=== PATIENT | male | born 1940 | race Caucasian/White ===

== ENCOUNTER 2016-02-21 00:14 | Inpatient (IN) | payer MEDICARE ==
[2016-02-21 01:06] LABS: Hematocrit 42 % (42-52); Hemoglobin 13.6 g/dl (14.0-18.0); Mean Corpuscular HGB Conc 33 g/dl (31-36); Mean Corpuscular Hemoglobin 30 pg (27-31); Mean Corpuscular Volume 93 fL (80-94); Mean Platelet Volume 7 um3 (7.4-10.4); Red Cell Distribution Width 13 % (10.5-15); White Blood Count 14.2 10^3/ul (3.5-10.8)
[2016-02-21 01:17] LABS: Albumin 4.2 g/dL (3.2-5.2); BUN/Creatinine Ratio 29.2 (8-20); Calcium 9.2 mg/dL (8.6-10.3); EGFR African American 107.2 (>60); EGFR Non-African American 83.3 (>60); Globulin 2.5 g/dL (2-4); Magnesium 1.8 mg/dL (1.9-2.7); Total Bilirubin 0.5 mg/dL (0.2-1.0); Total Protein 6.7 g/dL (6.4-8.9)
[2016-02-21] MEDS ORDERED: Acetaminophen TAB* 325 MG PO ONE (01:37)
--- NOTE | 2016-02-21 02:05 | ED ---
Kevin Beach Billy, scribed for Gino Reyna MD on 02/21/16 at 0039 . Complex/Multi-Sys Presentation - HPI Summary HPI Summary: 75 year-old male coming to the ED with a complaint of generalized weakness and constant right ankle pain. He states that the pain began at dinnertime today. Pain severity 6/10. Pain is worse with touch. He has no other complaints. - History Of Current Complaint Chief Complaint: EDGeneral Time Seen by Provider: 02/21/16 00:20 Hx Obtained From: Patient Onset/Duration: Gradual Onset, Lasting Hours, Still Present Timing: Constant Severity Currently: Moderate Severity Initially: Moderate Location: Pain At: - right ankle Aggravating Factor(s): touch Associated Signs And Symptoms: Positive: Weakness - Allergies/Home Medications Allergies/Adverse Reactions: Allergies Allergy/AdvReac Type Severity Reaction Status Date / Time No Known Allergies Allergy Verified 02/21/16 06:38 Home Medications: Home Medications Carbidopa/Levodop 25/100 MG(*) [Sinemet 25/100 TAB(*)] 1 tab PO DAILY 02/21/16 [ History Confirmed 02/21/16] PMH/Surg Hx/FS Hx/Imm Hx Endocrine/Hematology History: Denies: Hx Diabetes Cardiovascular History: Reports: Hx Hypertension Denies: Other Cardiovascular Problems/Disorders - enlarged aortic route. Dr. Espinoza aware Respiratory History: Reports: Hx Asthma - A CHILD, Hx Pneumonia, Hx Seasonal Allergies History: Reports: Hx Benign Prostatic Hyperplasia Sensory History: Reports: Hx Contacts or Glasses Opthamlomology History: Reports: Hx Contacts or Glasses Neurological History: Reports: Other Neuro Impairments/Disorders - Parkinson's ( 1999) - Cancer History Cancer Type, Location and Year: prostate CA Hx Chemotherapy: Yes - Surgical History Surgery Procedure, Year, and Place: TONSILECTOMY - Immunization History Date of Tetanus Vaccine: UNK Date of Influenza Vaccine: fall 2015 Infectious Disease History: No Infectious Disease History: Reports: History Other Infectious Disease - MEASLES AND CHICKEN POX A CHILD Denies: Traveled Outside the [place] in Last 30 Days - Family History Known Family History: Positive: Cardiac Disease - Social History Alcohol Use: None Substance Use Type: Reports: None Smoking Status (MU): Never Smoked Tobacco Review of Systems Positive: Other - RLE pain Positive: Weakness All Other Systems Reviewed And Are Negative: Yes Physical Exam Triage Information Reviewed: Yes Vital Signs On Initial Exam: Initial Vitals Temp Pulse Resp BP Pulse Ox 101.1 F 114 16 169/92 97 02/21/16 00:17 02/21/16 00:17 02/21/16 00:17 02/21/16 00:17 02/21/16 00:17 Vital Signs Reviewed: Yes Appearance: Positive: No Pain Distress, Thin Skin: Positive: Warm Eyes: Positive: AURA ENT: Positive: Hearing grossly normal Neck: Positive: Supple Respiratory/Lung Sounds: Positive: Breath Sounds Present Cardiovascular: Positive: Normal Abdomen Description: Positive: Nontender, Soft Bowel Sounds: Positive: Present Neurological: Positive: Alert, Oriented to Person Place, Time - [place]ter Coma Scale Coma Scale Total: 15 Diagnostics - Vital Signs Vital Signs Temp Pulse Resp BP Pulse Ox 02/21/16 00:17 101.1 F 114 16 169/92 97 - Laboratory Lab Results: Lab Results 02/21/16 02/21/16 02/21/16 Range/Units 00:50 00:50 00:50 WBC 14.2 H (3.5-10.8) 10^3/ul RBC 4.50 (4.0-5.4) 10^6/ul Hgb 13.6 L (14.0-18.0) g/dl Hct 42 (42-52) % MCV 93 (80-94) fL MCH 30 (27-31) pg MCHC 33 (31-36) g/dl RDW 13 (10.5-15) % Plt Count 150 (150-450) 10^3/ul MPV 7 L (7.4-10.4) um3 Neut % (Auto) 88.7 H (38-83) % Lymph % (Auto) 6.1 L (25-47) % [place] % (Auto) 4.3 (1-9) % Eos % (Auto) 0.4 (0-6) % Baso % (Auto) 0.5 (0-2) % Absolute Neuts (auto) 12.6 H (1.5-7.7) 10^3/ul Absolute Lymphs (auto) 0.9 L (1.0-4.8) 10^3/ul Absolute Monos (auto) 0.6 (0-0.8) 10^3/ul Absolute Eos (auto) 0.1 (0-0.6) 10^3/ul Absolute Basos (auto) 0.1 (0-0.2) 10^3/ul Absolute Nucleated RBC 0 10^3/ul Nucleated RBC % 0 Sodium 137 (133-145) mmol/L Potassium 4.0 (3.5-5.0) mmol/L Chloride 102 (101-111) mmol/L Carbon Dioxide 29 (22-32) mmol/L Anion Gap 6 (2-11) mmol/L BUN 26 H (6-24) mg/dL Creatinine 0.89 (0.67-1.17) mg/dL Est GFR ( Amer) 107.2 (>60) Est GFR (Non-Af Amer) 83.3 (>60) BUN/Creatinine Ratio 29.2 H (8-20) Glucose 119 H (70-100) mg/dL Lactic Acid 1.8 (0.5-2.0) mmol/L Calcium 9.2 (8.6-10.3) mg/dL Magnesium 1.8 L (1.9-2.7) mg/dL Total Bilirubin 0.50 (0.2-1.0) mg/dL AST 20 (13-39) U/L ALT 7 (7-52) U/L Alkaline Phosphatase 98 (34-104) U/L Troponin I 0.00 (<0.04) ng/mL Total Protein 6.7 (6.4-8.9) g/dL Albumin 4.2 (3.2-5.2) g/dL Globulin 2.5 (2-4) g/dL Albumin/Globulin Ratio 1.7 (1-3) Result Diagrams: 02/22/16 06:40 02/22/16 06:40 Lab Statement: Any lab studies that have been ordered have been reviewed, and results considered in the medical decision making process. - Radiology CXR Xray Interpretation: No Acute Changes Radiology Interpretation Completed By: ED Physician R. Ankle X-Ray Xray Interpretation: No Acute Changes Radiology Interpretation Completed By: ED Physician - EKG 0244 EKG Interpretation: sinus tach 110 bpm, no ST changes Re-Evaluation - Re-Evaluation First Eval Comment: for social service eval Complex Multi-Symp Course/Dx - Diagnoses Provider Diagnoses: UTI (urinary tract infection), CELLULITIS - Physician Notifications Instructed by Provider To: Admit As Inpatient Discharge - Discharge Plan Condition: Stable Disposition: ADMITTED TO [facility] The documentation as recorded by the Kevin gomez Billy accurately reflects the service I personally performed and the decisions made by me, Gino Reyna MD.
[2016-02-21 03:29] LABS: Urine Bilirubin Negative (Negative); Urine Glucose Negative (Negative); Urine Nitrite Negative (Negative)
[2016-02-21] MEDS ORDERED: Carbidopa/Levodop 25/100 MG TAB(*) PO ONE ×2 (07:24→07:39)
--- NOTE | 2016-02-21 07:35 | RAD ---
INDICATION: Fever. COMPARISON: Comparison is made with a prior chest x-ray study from August 02, 2012. TECHNIQUE: AP and lateral views of the chest were obtained. FINDINGS: There is elevation of the left hemidiaphragm versus a diaphragmatic hernia which appears unchanged from the prior study. This silhouettes the left heart border and limits the study. The lungs are underinflated and grossly clear. No pleural effusion is seen. IMPRESSION: CHRONIC ELEVATION OF THE LEFT HEMIDIAPHRAGM VERSUS DIAPHRAGMATIC HERNIA, UNCHANGED.
[2016-02-21] MEDS ORDERED: Carbidopa/Levodop 25/100 MG TAB(*) ONE (07:37)
--- NOTE | 2016-02-21 07:37 | RAD ---
INDICATION: Right ankle injury. TECHNIQUE: 2 views of the right ankle were obtained. FINDINGS: There is diffuse soft tissue swelling. The bones are normal alignment. There is a faint radiolucent line extending through the tip of the medial malleolus possibly representing a nondisplaced fracture. 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 IMPRESSION: 1. DIFFUSE SOFT TISSUE SWELLING. 2. POSSIBLE NONDISPLACED FRACTURE OF THE TIP OF THE MEDIAL MALLEOLUS.
[2016-02-21] MEDS ORDERED: ceFAZolin 1 GM in Dextrose (*) 1 GM/50 ML BAG IVPB ONE (08:15)
[2016-02-21] MEDS ORDERED: NS 0.9% 1000 ML* 2,000 ML IV ONE (08:15)
[2016-02-21] MEDS ORDERED: Magnesium Hydroxide LIQ* 30 ML UDC PO PRN (08:27)
[2016-02-21] MEDS ORDERED: Temazepam CAP* 15 MG PO PRN (08:27)
[2016-02-21] MEDS ORDERED: Al Hydrox/Mg Hydrox/Simet LIQ* 30 ML UDC PO PRN (08:27)
[2016-02-21] MEDS ORDERED: NS 0.9% 1000 ML* 1,000 ML IV SCH (08:30)
[2016-02-21] MEDS ORDERED: Potassium Chlor TAB* 10 MEQ TAB.ER PO SCH (09:00)
[2016-02-21] MEDS ORDERED: Furosemide TAB* 20 MG PO SCH (09:00)
[2016-02-21] MEDS ORDERED: QUEtiapine TAB* 25 MG PO SCH (09:00)
--- NOTE | 2016-02-21 09:19 | ED ---
Progress - Progress Note Progress Note: PATIENT ADMITTED BY HOSPITALIST IN STABLE CONDITION FOR RT LEG CELLULITIS, FEVER , TACHYCARDIA, WEAKNESS. DISCUSSED WITH PATIENT/SON, BAND SPLITTER AND HOSPITALIST. Re-Evaluation - Re-Evaluation First Eval Comment: for social service eval Course/Dx - Diagnoses Provider Diagnoses: UTI (urinary tract infection)
[2016-02-21] MEDS: Carbidopa/Levodop 25/100 MG TAB(*) PO SCH ×3 (12:43→20:18)
[2016-02-21] MEDS: Pramipexole TAB* 0.5 MG PO SCH ×3 (12:45→20:18)
[2016-02-21] MEDS: Docusate CAP* 100 MG PO SCH ×2 (12:45→20:18)
[2016-02-21] MEDS: Heparin VIAL(*) 5000 UNITS/ML VIAL (FIVE THOUSAND) SUBCUT SCH ×2 (12:47→20:27)
[2016-02-21] MEDS: ceFAZolin 1 GM in Dextrose (*) 1 GM/50 ML BAG IVPB SCH ×2 (15:28→20:18)
[2016-02-21] MEDS: Acetaminophen TAB* 325 MG PO PRN (15:46)
--- NOTE | 2016-02-21 16:11 | HP ---
HISTORY AND PHYSICAL: DATE OF ADMISSION: 02/21/16 PRIMARY CARE PHYSICIAN: Dr. Sullivan. CHIEF COMPLAINT: Fever and chills. HISTORY OF PRESENT ILLNESS: Rick Anderson is a 75-year-old male with history of Parkinson's and hypertension, who presents complaining of sudden-onset fever and chills last night. The patient also noted that his right leg was red and swollen. He was diagnosed with cellulitis in the emergency department and met sepsis criteria at admission. He is going to be placed on overnight observation. PAST MEDICAL HISTORY: 1. Parkinson's disease. 2. History of prostate cancer, on Lupron injections prescribed by Dr. Cerda. 3. History of PACs and PVCs and evaluation for that by Dr. Butler in 2012. 4. History of bilateral partially thrombosed iliac artery aneurysms. 5. History of chronic leg edema. 6. Hypertension. 7. History of tonsillectomy remotely. MEDICATIONS: At home, include: 1. Sinemet 25/100 two tabs 3 times a day. 2. Vitamin C 500 mg daily. 3. Calcium carbonate 1 tablet daily. 4. Seroquel 12.5 mg daily. 5. Mirapex 1 mg 3 times a day. 6. Potassium chloride 20 mEq daily. ALLERGIES: No known drug allergies. FAMILY HISTORY: Both parents in their 90s. Both had history of heart disease. The patient's sister had thoracic aortic aneurysm and in her 60s. SOCIAL HISTORY: The patient denies tobacco, alcohol, or drug use. He is retired and lives at [facility] in an independent apartment. He ambulates with a roller walker and he still drives. His son, Haroon Anderson, is his healthcare proxy. REVIEW OF SYSTEMS: Please see history of present illness. The patient stated that he had been in his usual health up until yesterday when he developed erythema on the right leg and fever. Once again, he usually ambulates with a rolling walker, but he is able to take care of his own affairs. His Parkinson' s had been fairly controlled. He has a history of bilateral leg edema for which he used to take Lasix, but that had been "out of control" for the past year. His weight had been unchanged. He denies any recent illnesses apart from the one that occurred within past 24 hours. All the remaining 14 systems were reviewed with the patient and were otherwise negative. PHYSICAL EXAMINATION GENERAL: The patient is a very pleasant 75-year-old male, who is in no acute distress. Alert, awake, and oriented x3. VITAL SIGNS: Blood pressure of 115/62, heart rate of 104 and regular, respiratory rate 16, oxygen saturation 93% on room air, temperature max 101.1. HEENT: Head atraumatic, normocephalic. Eyes: Pupils equal, reactive to light and accommodation. Oropharynx clear. Mucosa moist. NECK: Supple. No JVD. No bruit bilaterally. RESPIRATORY: Clear to auscultation bilaterally. CARDIOVASCULAR: Regular rate and rhythm. No murmur. ABDOMEN: Soft and nontender. Bowel sounds positive in all 4 quadrants. EXTREMITIES: There is trace right ankle edema. Pulses present 2+ bilaterally. No clubbing or cyanosis. NEURO: Speech clear. Cranial nerves II through XII grossly intact. Motor strength is 5/5 bilaterally. The patient does appear to have some baseline tremor and mild rigidity. PSYCHIATRIC: Alert and oriented x3 with no evidence of anxiety or depression. SKIN: Upon evaluation of the skin, the patient has erythema of the skin surrounding the right medial malleolus and tracking all the way to throughout the patient's distal lower extremity to the level of the knee. No palpated loculated fluid collections underneath the skin. The patient has full range of motion in bilateral ankles. DIAGNOSTIC STUDIES/LAB DATA: White blood cell count of 14.2, hemoglobin of 13.6, hematocrit of 42, and platelets of 150. Sodium was 137, potassium 4.0, chloride of 102, carbon dioxide 29, BUN 26, creatinine 0.89. Liver functions were unremarkable. Urinalysis showed trace ketones. Ankle x-ray, impression: "Diffuse soft tissue swelling. Possible nondisplaced fracture of the tip of the medial malleolus." Chest x-ray, impression: "Chronic elevation of the left hemidiaphragm versus diaphragmatic hernia. Unchanged." The patient's EKG shows sinus tachycardia with a heart rate of 110 beats per minute with normal axis, no ST changes. ASSESSMENT AND PLAN: A 75-year-old male with history of Parkinson's and hypertension, who presents with right leg cellulitis. The patient is going to be placed on observation and treated with cefazolin. He does meet sepsis criteria on admission. He is going to be also placed on gentle hydration. In regards to his Parkinson's, Sinemet and pramipexole are going to be continued. For DVT prophylaxis, the patient is going to be placed on heparin subcutaneously. Due to history of ambulation with a walker and overall deconditioning, PT and OT evaluations are going to be obtained. Code status was discussed with the patient. The patient wishes to be do not resuscitate and MOLST form was signed. The patient's healthcare proxy is his son, Haroon. In regards to possibility of nondisplaced fracture of the tip of the medial malleolus, I believe the treatment is nonoperative, but I am going to curb-side orthopedic surgeon in regards to that. TIME SPENT: Approximately 65 minutes was spent on admission of this patient, more than half that time was spent [id number] with the patient during the interview and physical exam. CC: Dr. Sullivan; Dr. Butler * [id number]/[facility] #: [id number] MTDD
[2016-02-21] MEDS: QUEtiapine TAB* 25 MG PO SCH (20:19)
[2016-02-22] MEDS: Acetaminophen TAB* 325 MG PO PRN (00:12)
[2016-02-22] MEDS: ceFAZolin 1 GM in Dextrose (*) 1 GM/50 ML BAG IVPB SCH ×4 (04:25→22:05)
[2016-02-22] MEDS: Heparin VIAL(*) 5000 UNITS/ML VIAL (FIVE THOUSAND) SUBCUT SCH ×3 (05:14→23:29)
[2016-02-22 06:57] LABS: Hematocrit 37 % (42-52); Hemoglobin 12.7 g/dl (14.0-18.0); Mean Corpuscular HGB Conc 34 g/dl (31-36); Mean Corpuscular Hemoglobin 31 pg (27-31); Mean Corpuscular Volume 91 fL (80-94); Mean Platelet Volume 7 um3 (7.4-10.4); Red Blood Count 4.09 10^6/ul (4.0-5.4); Red Cell Distribution Width 14 % (10.5-15); White Blood Count 9.6 10^3/ul (3.5-10.8)
[2016-02-22 07:10] LABS: BUN/Creatinine Ratio 25.3 (8-20); Calcium 8.3 mg/dL (8.6-10.3); EGFR African American 116.2 (>60); EGFR Non-African American 90.3 (>60); Potassium 3.5 mmol/L (3.5-5.0)
[2016-02-22] MEDS: Pramipexole TAB* 0.5 MG PO SCH ×3 (08:10→14:18)
[2016-02-22] MEDS: Docusate CAP* 100 MG PO SCH ×2 (08:10→23:14)
[2016-02-22] MEDS: Carbidopa/Levodop 25/100 MG TAB(*) PO SCH ×3 (08:10→14:18)
--- NOTE | 2016-02-22 09:56 | PN ---
Subjective Date of Service: 02/22/16 Interval History: Less pain R leg. Patient states he is weaker because he did not get the same doses of carbidops/Ldopa that he gets at home. Objective Active Medications: Acetaminophen (Tylenol Tab*) 650 mg PO Q4H PRN PRN Reason: FEVER/PAIN Last Admin: 02/22/16 00:12 Dose: 650 mg Al Hydrox/Mg Hydrox/Simethicone (Maalox Plus*) 30 ml PO Q6H PRN PRN Reason: INDIGESTION Carbidopa/Levodopa (Sinemet Cr 50/200(*)) 0.5 tab.cr PO DAILY [facility] Carbidopa/Levodopa (Sinemet Cr 50/200(*)) 1 tab.cr PO 1700 [facility] Carbidopa/Levodopa (Sinemet 25/100 Tab(*)) 2 tab PO 0700,1000,1500 [facility] Docusate Sodium (Colace Cap*) 100 mg PO BID [facility] Last Admin: 02/22/16 08:10 Dose: 100 mg Heparin Sodium (Porcine) (Heparin Vial(*)) 5,000 units SUBCUT Q8HR [facility] Last Admin: 02/22/16 05:14 Dose: 5,000 units Cefazolin Sodium/Dextrose (Kefzol 1 Gm In Dextrose Duplex (*)) 1 gm in 50 mls @ 200 mls/hr IVPB Q6H [facility] Last Admin: 02/22/16 08:10 Dose: 200 mls/hr Magnesium Hydroxide (Milk Of Magnesia Liq*) 30 ml PO Q4H PRN PRN Reason: CONSTIPATION Pramipexole Dihydrochloride (Mirapex Tab*) 1 mg PO 0700,1000,1500 [facility] Quetiapine Fumarate (Seroquel Tab*) 12.5 mg PO BEDTIME [facility] Last Admin: 02/21/16 20:19 Dose: 12.5 mg Temazepam (Restoril Cap*) 15 mg PO BEDTIME PRN PRN Reason: INSOMNIA Vital Signs 02/21/16 02/21/16 02/21/16 10:00 10:59 11:00 Temperature 98.6 F 98.6 F Pulse Rate 94 94 Respiratory 28 Rate Blood Pressure 115/76 132/74 132/74 (mmHg) O2 Sat by Pulse 95 95 Oximetry 02/21/16 02/21/16 02/21/16 15:36 19:33 19:45 Temperature 102.0 F 98.4 F Pulse Rate 93 78 Respiratory 20 28 22 Rate Blood Pressure 129/73 123/66 (mmHg) O2 Sat by Pulse 93 96 Oximetry 02/21/16 02/22/16 23:45 07:32 Temperature 102.2 F 97.9 F Pulse Rate 87 73 Respiratory 16 18 Rate Blood Pressure 140/84 122/75 (mmHg) O2 Sat by Pulse 92 96 Oximetry Oxygen Devices in Use Now: None Appearance: Alert, supine in bed. In good spirits. Looks comfortable. Eyes: No Scleral Icterus Respiratory: Symmetrical Chest Expansion and Respiratory Effort, Clear to Auscultation, Clear to Percussion Cardiovascular: NL Sounds; No Murmurs; No JVD, RRR, No Edema, - Extremities: No Clubbing, Cyanosis, - - 1-2+ edema R lower leg Skin: No Nodules or Sclerosis, - - R leg somewhat redder than L leg. Both legs hyperpigmented. Neurological: Alert and Oriented x 3, NL Sensation - parkinsonian facies. Result Diagrams: 02/22/16 06:40 02/22/16 06:40 Additional Lab and Data: Lab Results 02/21/16 02/21/16 02/21/16 Range/Units 00:50 00:50 00:50 WBC 14.2 H (3.5-10.8) 10^3/ul RBC 4.50 (4.0-5.4) 10^6/ul Hgb 13.6 L (14.0-18.0) g/dl Hct 42 (42-52) % MCV 93 (80-94) fL MCH 30 (27-31) pg MCHC 33 (31-36) g/dl RDW 13 (10.5-15) % Plt Count 150 (150-450) 10^3/ul MPV 7 L (7.4-10.4) um3 Neut % (Auto) 88.7 H (38-83) % Lymph % (Auto) 6.1 L (25-47) % [place] % (Auto) 4.3 (1-9) % Eos % (Auto) 0.4 (0-6) % Baso % (Auto) 0.5 (0-2) % Absolute Neuts (auto) 12.6 H (1.5-7.7) 10^3/ul Absolute Lymphs (auto) 0.9 L (1.0-4.8) 10^3/ul Absolute Monos (auto) 0.6 (0-0.8) 10^3/ul Absolute Eos (auto) 0.1 (0-0.6) 10^3/ul Absolute Basos (auto) 0.1 (0-0.2) 10^3/ul Absolute Nucleated RBC 0 10^3/ul Nucleated RBC % 0 Sodium 137 (133-145) mmol/L Potassium 4.0 (3.5-5.0) mmol/L Chloride 102 (101-111) mmol/L Carbon Dioxide 29 (22-32) mmol/L Anion Gap 6 (2-11) mmol/L BUN 26 H (6-24) mg/dL Creatinine 0.89 (0.67-1.17) mg/dL Est GFR ( Amer) 107.2 (>60) Est GFR (Non-Af Amer) 83.3 (>60) BUN/Creatinine Ratio 29.2 H (8-20) Glucose 119 H (70-100) mg/dL Lactic Acid 1.8 (0.5-2.0) mmol/L Calcium 9.2 (8.6-10.3) mg/dL Magnesium 1.8 L (1.9-2.7) mg/dL Total Bilirubin 0.50 (0.2-1.0) mg/dL AST 20 (13-39) U/L ALT 7 (7-52) U/L Alkaline Phosphatase 98 (34-104) U/L Troponin I 0.00 (<0.04) ng/mL Total Protein 6.7 (6.4-8.9) g/dL Albumin 4.2 (3.2-5.2) g/dL Globulin 2.5 (2-4) g/dL Albumin/Globulin Ratio 1.7 (1-3) Assess/Plan/Problems-Billing Assessment: - Patient Problems (1) Cellulitis Current Visit: Yes Status: Acute Code(s): L03.90 - CELLULITIS, UNSPECIFIED SNOMED Code(s): 818355037 Comment: Temp 102.2 2345 on 02/20. Continue cefazolin. (2) Parkinson disease Current Visit: Yes Status: Acute Code(s): G20 - PARKINSON'S DISEASE SNOMED Code(s): 27001969 Comment: All home doses of carbidopa/Ldopa, pramipexole ordered per his schedule, confirmed dose and schedule with [facility]. Pt eval pending.
[2016-02-22] MEDS: Carbidopa/Levodop CR 50/200(*) TAB.CR PO SCH (11:11)
[2016-02-22] MEDS ORDERED: Carbidopa/Levodop CR 50/200(*) TAB.CR PO SCH (17:00)
[2016-02-22] MEDS: QUEtiapine TAB* 25 MG PO SCH (23:14)
[2016-02-23] MEDS: ceFAZolin 1 GM in Dextrose (*) 1 GM/50 ML BAG IVPB SCH (04:06)
[2016-02-23] MEDS: Heparin VIAL(*) 5000 UNITS/ML VIAL (FIVE THOUSAND) SUBCUT SCH (06:04)
[2016-02-23] MEDS: Pramipexole TAB* 0.5 MG PO SCH ×2 (06:13→10:38)
[2016-02-23] MEDS: Carbidopa/Levodop 25/100 MG TAB(*) PO SCH ×3 (06:13→10:38)
[2016-02-23 07:29] VITALS: BP 123/62
[2016-02-23] MEDS ORDERED: cefTRIAXone VIAL(*) 1,000 MG in NS 0.9% 50 ML* 50 ML IVPB SCH ×2 (07:36→08:00)
[2016-02-23] MEDS: Docusate CAP* 100 MG PO SCH (08:54)
[2016-02-23] MEDS: Carbidopa/Levodop CR 50/200(*) TAB.CR PO SCH (08:56)
--- NOTE | 2016-02-23 09:13 | DCNOTE ---
Subjective Date of Service: 02/23/16 Interval History: No more leg pain. He feels stronger since his parkinson meds were changed to the correct schedule. No new c/o. He feels strong enough to go home. Objective Active Medications: Acetaminophen (Tylenol Tab*) 650 mg PO Q4H PRN PRN Reason: FEVER/PAIN Last Admin: 02/22/16 00:12 Dose: 650 mg Al Hydrox/Mg Hydrox/Simethicone (Maalox Plus*) 30 ml PO Q6H PRN PRN Reason: INDIGESTION Carbidopa/Levodopa (Sinemet Cr 50/200(*)) 0.5 tab.cr PO DAILY [facility] Last Admin: 02/22/16 11:11 Dose: 0.5 tab.cr Carbidopa/Levodopa (Sinemet Cr 50/200(*)) 1 tab.cr PO DAILY@1700 [facility] Last Admin: 02/22/16 16:19 Dose: 1 tab.cr Carbidopa/Levodopa (Sinemet 25/100 Tab(*)) 2 tab PO 0700,1000,1500 [facility] Last Admin: 02/23/16 06:13 Dose: 2 tab Docusate Sodium (Colace Cap*) 100 mg PO BID [facility] Last Admin: 02/22/16 23:14 Dose: 100 mg Heparin Sodium (Porcine) (Heparin Vial(*)) 5,000 units SUBCUT Q8HR [facility] Last Admin: 02/23/16 06:04 Dose: 5,000 units Ceftriaxone Sodium 1,000 mg/ (Sodium Chloride) 50 mls @ 200 mls/hr IVPB Q24HR [facility] Magnesium Hydroxide (Milk Of Magnesia Liq*) 30 ml PO Q4H PRN PRN Reason: CONSTIPATION Pramipexole Dihydrochloride (Mirapex Tab*) 1 mg PO 0700,1000,1500 [facility] Last Admin: 02/23/16 06:13 Dose: 1 mg Quetiapine Fumarate (Seroquel Tab*) 12.5 mg PO BEDTIME [facility] Last Admin: 02/22/16 23:14 Dose: 12.5 mg Temazepam (Restoril Cap*) 15 mg PO BEDTIME PRN PRN Reason: INSOMNIA Vital Signs 02/22/16 02/22/16 02/22/16 11:22 15:45 20:44 Temperature 97.3 F 98.1 F 98.8 F Pulse Rate 75 83 86 Respiratory 18 16 Rate Blood Pressure 118/67 129/43 (mmHg) O2 Sat by Pulse 93 95 95 Oximetry 02/22/16 02/22/16 02/23/16 22:10 23:33 07:15 Temperature 98.4 F 98.2 F Pulse Rate 98 83 Respiratory 16 16 16 Rate Blood Pressure 156/84 123/62 (mmHg) O2 Sat by Pulse 96 93 Oximetry Oxygen Devices in Use Now: None Appearance: Alert, partly up in bed. In good spirits. Looks comfortable. Eyes: No Scleral Icterus Extremities: No Clubbing, Cyanosis, - - 1+ edema R lower leg, larger than L lower leg Skin: No Nodules or Sclerosis, - - R lower leg somewhat redder than L, hyperpigmented. R leg much warmer than L leg. Result Diagrams: 02/22/16 06:40 02/22/16 06:40 Additional Lab and Data: Lab Results 02/21/16 02/21/16 02/21/16 Range/Units 00:50 00:50 00:50 WBC 14.2 H (3.5-10.8) 10^3/ul RBC 4.50 (4.0-5.4) 10^6/ul Hgb 13.6 L (14.0-18.0) g/dl Hct 42 (42-52) % MCV 93 (80-94) fL MCH 30 (27-31) pg MCHC 33 (31-36) g/dl RDW 13 (10.5-15) % Plt Count 150 (150-450) 10^3/ul MPV 7 L (7.4-10.4) um3 Neut % (Auto) 88.7 H (38-83) % Lymph % (Auto) 6.1 L (25-47) % [place] % (Auto) 4.3 (1-9) % Eos % (Auto) 0.4 (0-6) % Baso % (Auto) 0.5 (0-2) % Absolute Neuts (auto) 12.6 H (1.5-7.7) 10^3/ul Absolute Lymphs (auto) 0.9 L (1.0-4.8) 10^3/ul Absolute Monos (auto) 0.6 (0-0.8) 10^3/ul Absolute Eos (auto) 0.1 (0-0.6) 10^3/ul Absolute Basos (auto) 0.1 (0-0.2) 10^3/ul Absolute Nucleated RBC 0 10^3/ul Nucleated RBC % 0 Sodium 137 (133-145) mmol/L Potassium 4.0 (3.5-5.0) mmol/L Chloride 102 (101-111) mmol/L Carbon Dioxide 29 (22-32) mmol/L Anion Gap 6 (2-11) mmol/L BUN 26 H (6-24) mg/dL Creatinine 0.89 (0.67-1.17) mg/dL Est GFR ( Amer) 107.2 (>60) Est GFR (Non-Af Amer) 83.3 (>60) BUN/Creatinine Ratio 29.2 H (8-20) Glucose 119 H (70-100) mg/dL Lactic Acid 1.8 (0.5-2.0) mmol/L Calcium 9.2 (8.6-10.3) mg/dL Magnesium 1.8 L (1.9-2.7) mg/dL Total Bilirubin 0.50 (0.2-1.0) mg/dL AST 20 (13-39) U/L ALT 7 (7-52) U/L Alkaline Phosphatase 98 (34-104) U/L Troponin I 0.00 (<0.04) ng/mL Total Protein 6.7 (6.4-8.9) g/dL Albumin 4.2 (3.2-5.2) g/dL Globulin 2.5 (2-4) g/dL Albumin/Globulin Ratio 1.7 (1-3) Assess/Plan/Problems-Billing Assessment: - Patient Problems (1) Cellulitis Current Visit: Yes Status: Acute Code(s): L03.90 - CELLULITIS, UNSPECIFIED SNOMED Code(s): 820409276 Comment: Afebrile last 36 hrs. Clinically improved. Pt will get one dose ceftriaxone 1 gm IV, start tomorrow on cefuroxime 500 mg bid x 8 days. I emphasized need to elevate R leg as much as possible. (2) Parkinson disease Current Visit: Yes Status: Acute Code(s): G20 - PARKINSON'S DISEASE SNOMED Code(s): 99169342 Comment: All home doses of carbidopa/Ldopa, pramipexole ordered per his schedule, confirmed dose and schedule with [facility]. Physical therapist felt patient was safe to discharge. Status and Disposition: Discharge now. Fup Dr. Sullivan.
--- NOTE | 2016-02-24 00:54 | DS ---
DISCHARGE SUMMARY: DATE OF ADMISSION: 02/22/16 DATE OF DISCHARGE: 02/23/16 HISTORY OF PRESENT ILLNESS: A 75-year-old man presented with fever and chills, his right leg was red and swollen, this really all appeared about the day before admission. He had not sought medical attention before coming to the emergency room. He met sepsis criteria at admission. He was clearly septic from his right leg cellulitis. The rest of history is detailed in the dictated admission note. It took a little while to get his medications completely aligned with his complicated parkinsonian medication schedule. The patient was confident he could manage at home. He seemed all in all quite capable of taking care of himself. We did arrange visiting nurse services help. He was treated with intravenous cefazolin, 4 sets of blood cultures were drawn and all have no growth at the time of this dictation. He had a fever of 102 degrees at the first hospital day at 3 in the afternoon, but the following 40 hours he was afebrile. His right leg was somewhat warm and somewhat swollen, a little red, but the pain resolved. I think this will be a slowly resolving clinical picture. His fever, chills, and pain level completely resolved. He did get a dose of ceftriaxone 1 g just before discharge and will start the next day on cefuroxime 500 mg b.i.d. for 8 more days to complete his antibiotic course. FINAL DIAGNOSES: 1. Parkinson disease. 2. Cellulitis, right leg. DISCHARGE MEDICATIONS: 1. Carbidopa/L-Dopa 25/100 mg 2 tablets at 7 a.m., 10 a.m., and 3 p.m. 2. Carbidopa/L-Dopa CR 50/200 mg 1/2 tablet at 9 a.m. and 1 tablet at 5 p.m. daily. 3. Pramipexole 1 mg 7 a.m., 10 a.m., and 3 p.m. 4. Cefuroxime 500 mg b.i.d. for 8 days, starting 02/24/16. 5. Potassium chloride 10 mEq daily. CC: Del Sullivan MD* [id number]/[facility] #: [id number] [facility]
== END 2016-02-23 11:45 | disposition home or self-care (01) | DRG 872 ==
LOC: ED 00:14 → MED 08:27 → OBSVTOIN 02-22 09:00
PROVIDERS: ADMIT Internal Medicine; ATTEND Internal Medicine
DX: A41.9 Sepsis, unspecified organism (principal); G20 Parkinson's disease; L03.115 Cellulitis of right lower limb; I10 Essential (primary) hypertension; J45.909 Unspecified asthma, uncomplicated; N40.0 Benign prostatic hyperplasia without lower urinary tract symptoms; Z85.46 Personal history of malignant neoplasm of prostate; Z82.49 Family history of ischemic heart disease and other diseases of the circulatory system; Z66 Do not resuscitate
CPT/HCPCS: 36415; 71020; 80048; 80053; 81003; 83605; 83735; 84484; 85025; 87040; 93005; A9270-GY; G0378; J0690; J0696; J1644

== ENCOUNTER 2017-01-02 12:35 | Emergency (ER) | payer MEDICARE ==
--- NOTE | 2017-01-02 14:28 | RAD ---
HISTORY: Red swollen right lower leg COMPARISONS: None relevant TECHNIQUE: Multiple transverse and longitudinal ultrasound images were obtained of the right lower extremity from the level of the common femoral vein inferiorly through to the infrapopliteal veins using grayscale, color Doppler, and spectral Doppler imaging with and without compression and with augmentation. Comparison images were obtained of the contralateral common femoral vein. FINDINGS: VEINS: The venous system of the right lower extremity is compressible throughout its course, with normal flow on color Doppler imaging and normal response to augmentation on spectral Doppler imaging. SOFT TISSUES: There is subcutaneous edema of the distal calf. OTHER FINDINGS: There is a mildly enlarged right 1 lymph node measuring 1.2 cm in short axis. IMPRESSION: 1. NO RIGHT LOWER EXTREMITY DEEP VEIN THROMBOSIS 2. MILDLY ENLARGED RIGHT INGUINAL LYMPH NODE
[2017-01-02 15:10] LABS: Hematocrit 36 % (42-52); Hemoglobin 12.1 g/dl (14.0-18.0); Mean Corpuscular HGB Conc 34 g/dl (31-36); Mean Corpuscular Hemoglobin 31 pg (27-31); Mean Corpuscular Volume 93 fL (80-94); Mean Platelet Volume 6 um3 (7.4-10.4); Red Blood Count 3.86 10^6/ul (4.0-5.4); Red Cell Distribution Width 13 % (10.5-15)
[2017-01-02 15:27] LABS: Albumin 3.7 g/dL (3.2-5.2); BUN/Creatinine Ratio 27.4 (8-20); Calcium 8.7 mg/dL (8.6-10.3); EGFR African American 134.3 (>60); EGFR Non-African American 104.5 (>60); Globulin 2.9 g/dL (2-4); Potassium 4.3 mmol/L (3.5-5.0); Total Bilirubin 0.5 mg/dL (0.2-1.0); Total Protein 6.6 g/dL (6.4-8.9)
[2017-01-02 16:02] VITALS: BP 118/70
[2017-01-02] MEDS ORDERED: Sulfamethox/Trimethoprim DS 800/160* TAB PO ONE (16:17)
[2017-01-02] MEDS ORDERED: Cephalexin CAP* 500 MG PO ONE (16:17)
--- NOTE | 2017-01-03 22:17 | ED ---
[place] Alfonso scribed for Gabriele Cade MD on 01/02/17 at 1357 . Lower Extremity - HPI Summary HPI Summary: This patient is a 76 year old M presenting to [facility] with a chief complaint of RLE erythema and swelling since 5 days ago. The patient rates the pain 1/10 in severity. Symptoms alleviated by nothing. Patient reports SOB (few years). Patient denies fever, chills, diaphoresis, CP, and skin breaking. He reports travels to [place] 10 days ago. - History of Current Complaint Chief Complaint: EDExtremityLower Stated Complaint: RIGHT LEG INJURY Time Seen by Provider: 01/02/17 13:50 Hx Obtained From: Patient Onset of Pain: Prior to Arrival Onset/Duration: Days - 5 Severity Currently: Mild Pain Intensity: 1 Pain Scale Used: 0-10 Numeric Timing: Constant Location: Is Discrete @ - RLE Associated Signs And Symptoms: Positive: Other - SOB (few years). Patient denies fever, chills, diaphoresis, CP, and skin breaking. Alleviating Factor(s): Nothing - Allergies/Home Medications Allergies/Adverse Reactions: Allergies Allergy/AdvReac Type Severity Reaction Status Date / Time No Known Allergies Allergy Verified 02/21/16 06:38 PMH/Surg Hx/FS Hx/Imm Hx Endocrine/Hematology History: Denies: Hx Diabetes Cardiovascular History: Reports: Hx Hypertension Denies: Other Cardiovascular Problems/Disorders - enlarged aortic route. Dr. Espinoza aware Respiratory History: Reports: Hx Asthma - A CHILD, Hx Pneumonia, Hx Seasonal Allergies History: Reports: Hx Benign Prostatic Hyperplasia Sensory History: Reports: Hx Contacts or Glasses Opthamlomology History: Reports: Hx Contacts or Glasses Neurological History: Reports: Other Neuro Impairments/Disorders - Parkinson's ( 1999) - Cancer History Cancer Type, Location and Year: prostate CA Hx Chemotherapy: Yes - Surgical History Surgery Procedure, Year, and Place: TONSILECTOMY - Immunization History Date of Tetanus Vaccine: UNK Date of Influenza Vaccine: fall 2015 Infectious Disease History: No Infectious Disease History: Reports: History Other Infectious Disease - MEASLES AND CHICKEN POX A CHILD Denies: Traveled Outside the [place] in Last 30 Days - Family History Known Family History: Positive: Cardiac Disease - Social History Alcohol Use: None Hx Substance Use: No Substance Use Type: Reports: None Hx Tobacco Use: No Smoking Status (MU): Never Smoked Tobacco Review of Systems Negative: Fever, Chills, Fatigue Negative: Erythema Negative: Sore Throat Negative: Chest Pain Negative: Shortness Of Breath, Cough Negative: Abdominal Pain, Vomiting, Nausea Negative: dysuria, hematuria Positive: Edema - RLE. Negative: Myalgia Positive: Other - RLE erythema; negative skin breaking. Negative: Rash Neurological: Other - Negative dizziness All Other Systems Reviewed And Are Negative: Yes Physical Exam - Summary Physical Exam Summary: Constitutional: Well-developed, Well-nourished, Alert. (-) Distressed Skin: Warm, Dry, RLE erythema. HENT: Normocephalic; Atraumatic Eyes: Conjunctiva normal Neck: Musculoskeletal ROM normal neck. (-) JVD, (-) Stridor, (-) Tracheal deviation Cardio: Rhythm regular, rate normal, Heart sounds normal; Intact distal pulses; The pedal pulses are 2+ and symmetric. Radial pulses are 2+ and symmetric. (-) Murmur Pulmonary/Chest wall: Effort normal. (-) Respiratory distress, (-) Wheezes, (-) Rales Abd: Soft, (-) Tenderness, (-) Distension, (-) Guarding, (-) Rebound Musculoskeletal: 2+ edema mid-way up the RLE tibia. Lymph: (-) Cervical adenopathy Neuro: Alert, Oriented x3 Psych: Mood and affect Normal Triage Information Reviewed: Yes Vital Signs On Initial Exam: Initial Vitals Temp Pulse Resp BP Pulse Ox 98.8 F 74 18 108/70 97 01/02/17 12:45 01/02/17 12:45 01/02/17 12:45 01/02/17 12:45 01/02/17 12:45 Vital Signs Reviewed: Yes Diagnostics - Vital Signs Vital Signs Temp Pulse Resp BP Pulse Ox 01/02/17 12:45 98.8 F 74 18 108/70 97 - Laboratory Result Diagrams: 01/02/17 15:03 01/02/17 15:03 Lab Statement: Any lab studies that have been ordered have been reviewed, and results considered in the medical decision making process. - Additional Comments Diagnostic Additional Comments: Venous Doppler Study reveals, per radiologist, 1. NO RIGHT LOWER EXTREMITY DEEP VEIN THROMBOSIS. 2. MILDLY ENLARGED RIGHT INGUINAL LYMPH NODE. ED physician has reviewed this radiology report and agrees. Re-Evaluation - Re-Evaluation First Eval Re-Evaluation Time: 16:18 Comment: He is comfortable with and agrees to plan for discharge. His son is coming to give him a ride home. I have instructed the nurse to kai the area of erythema for the patient to monitor. He was instructed to return to the ED for fever, worsening symptoms, and worsening erythema. Lower Extremity Course/Dx - Course Assessment/Plan: This patient is a 76 year old M presenting to [facility] with a chief complaint of RLE erythema and swelling since 5 days ago. The patient rates the pain 1/10 in severity. Symptoms alleviated by nothing. Patient reports SOB (few years). Patient denies fever, chills, diaphoresis, CP, and skin breaking. He reports travels to [place] 10 days ago. Venous Doppler Study reveals, per radiologist, 1. NO RIGHT LOWER EXTREMITY DEEP VEIN THROMBOSIS. 2. MILDLY ENLARGED RIGHT INGUINAL LYMPH NODE. ED physician has reviewed this radiology report and agrees. In the ED course the patient was given Bactrim and Keflex. He is comfortable with and agrees to plan for discharge. His son is coming to give him a ride home. I have instructed the nurse to kai the area of erythema for the patient to monitor. He was instructed to return to the ED for fever, worsening symptoms, and worsening erythema. Patient will be discharged with prescription for Bactrim and Keflex and follow up from PCP. The patient is agreeable with this plan. - Diagnoses Provider Diagnoses: Cellulitis Discharge - Discharge Plan Condition: Stable Disposition: HOME Prescriptions: Cephalexin CAP* [Keflex CAP*] 500 mg PO QID #40 cap Sulfamethox/Trimethoprim DS* [Bactrim DS 800/160 TAB*] 1 tab PO BID #20 tab Patient Education Materials: Cellulitis (ED) Referrals: Del Sullivan MD [Primary Care Provider] - 2 Days Additional Instructions: RETURN TO THE EMERGENCY DEPARTMENT FOR CHANGING OR WORSENING SYMPTOMS, INCLUDING FEVER AND SPREADING REDNESS. The documentation as recorded by the Tito g[place] Alfonso accurately reflects the service I personally performed and the decisions made by me, Gabriele Cade MD.
== END 2017-01-02 16:50 | disposition home or self-care (01) ==
LOC: ED 12:35
DX: L03.115 Cellulitis of right lower limb (principal); Z85.46 Personal history of malignant neoplasm of prostate; I10 Essential (primary) hypertension; G20 Parkinson's disease
CPT/HCPCS: 36415; 80053; 83605; 84484; 85025; 85610; 85730; 87040; 99282; A9270-GY

== ENCOUNTER 2017-01-05 19:45 | Observation (INO) | payer MEDICARE ==
[2017-01-06] MEDS ORDERED: NS 0.9% 1000 ML*IV.FLUID IV ONE (00:04)
[2017-01-06] MEDS ORDERED: ceFAZolin 1 GM ADVAN(*) 1 GM in NS 0.9% 50 ML* 50 ML IVPB ONE (00:11)
[2017-01-06 00:32] LABS: Hematocrit 35 % (42-52); Hemoglobin 11.9 g/dl (14.0-18.0); Mean Corpuscular HGB Conc 34 g/dl (31-36); Mean Corpuscular Hemoglobin 31 pg (27-31); Mean Corpuscular Volume 93 fL (80-94); Mean Platelet Volume 7 um3 (7.4-10.4); Red Blood Count 3.81 10^6/ul (4.0-5.4); Red Cell Distribution Width 14 % (10.5-15); White Blood Count 8.7 10^3/ul (3.5-10.8)
[2017-01-06 00:47] LABS: ALT 4 U/L (7-52); Albumin 3.8 g/dL (3.2-5.2); Alkaline Phosphatase 107 U/L (34-104); BUN/Creatinine Ratio 21.1 (8-20); Blood Urea Nitrogen 24 mg/dL (6-24); CO2 Carbon Dioxide 24 mmol/L (22-32); Calcium 9.2 mg/dL (8.6-10.3); Chloride 103 mmol/L (101-111); EGFR African American 80.3 (>60); EGFR Non-African American 62.5 (>60); Globulin 3.3 g/dL (2-4); Glucose 92 mg/dL (70-100); Sodium 136 mmol/L (133-145); Total Protein 7.1 g/dL (6.4-8.9)
[2017-01-06 00:51] LABS: Anion Gap 9 mmol/L (2-11)
--- NOTE | 2017-01-06 01:08 | ED ---
Skin Complaint - HPI Summary HPI Summary: 76M presents with right leg swelling and redness for 8 days. He states he noticed some redness on lower leg that has since spread up to thigh. Was seen here three days ago on 01/02 and had neg u/s. was prescribed bactrim and keflex for cellulitis and has been taking it since. He denies any fevers. The nurse yoshi lines on legs above area of redness and the redness has spread up to this point. He admits to fatigue and pain with ambulate. He denies any fevers or chills. He uses a walker to get around and lives on his own. He has been admitted for cellulitis before. he has a PMH of parkinsons. He is not diabetic. He denies any chest pain or SOB. - History of Current Complaint Chief Complaint: EDExtremityLower Time Seen by Provider: 01/06/17 00:04 Stated Complaint: RIGHT LEG INJURY Pain Intensity: 0 - Additional Pertinent History Primary Care Physician: [id number] - Allergy/Home Medications Allergies/Adverse Reactions: Allergies Allergy/AdvReac Type Severity Reaction Status Date / Time No Known Allergies Allergy Verified 02/21/16 06:38 PMH/Surg Hx/FS Hx/Imm Hx Endocrine/Hematology History: Denies: Hx Diabetes Cardiovascular History: Reports: Hx Hypertension Denies: Other Cardiovascular Problems/Disorders - enlarged aortic route. Dr. Espinoza aware Respiratory History: Reports: Hx Asthma - A CHILD, Hx Pneumonia, Hx Seasonal Allergies History: Reports: Hx Benign Prostatic Hyperplasia Sensory History: Reports: Hx Contacts or Glasses Opthamlomology History: Reports: Hx Contacts or Glasses Neurological History: Reports: Other Neuro Impairments/Disorders - Parkinson's ( 1999) - Cancer History Cancer Type, Location and Year: prostate CA Hx Chemotherapy: Yes - Surgical History Surgery Procedure, Year, and Place: TONSILECTOMY - Immunization History Date of Tetanus Vaccine: UNK Date of Influenza Vaccine: fall 2015 Infectious Disease History: No Infectious Disease History: Reports: History Other Infectious Disease - MEASLES AND CHICKEN POX A CHILD Denies: Traveled Outside the US in Last 30 Days - Family History Known Family History: Positive: Cardiac Disease - Social History Alcohol Use: None Hx Substance Use: No Substance Use Type: Reports: None Hx Tobacco Use: No Smoking Status (MU): Never Smoked Tobacco Review of Systems Negative: Fever Negative: Chest Pain Negative: Shortness Of Breath Positive: Rash All Other Systems Reviewed And Are Negative: Yes Physical Exam Triage Information Reviewed: Yes Vital Signs On Initial Exam: Initial Vitals Temp Pulse Resp BP Pulse Ox 98.3 F 92 16 167/86 95 01/05/17 19:47 01/05/17 19:47 01/05/17 19:47 01/05/17 19:47 01/05/17 19:47 Vital Signs Reviewed: Yes Appearance: Positive: Well-Appearing Skin: Positive: Warm, Dry, Other - erythema and edema of right lower leg, Head/Face: Positive: Normal Head/Face Inspection Eyes: Positive: Normal, Conjunctiva Clear Respiratory/Lung Sounds: Positive: Clear to Auscultation, Breath Sounds Present Cardiovascular: Positive: Normal, RRR Musculoskeletal: Positive: Strength/ROM Intact - right leg, Other - good pulses , tender to palpation of right lower leg Neurological: Positive: Normal Psychiatric: Positive: Normal - Peter Coma Scale Coma Scale Total: 15 Diagnostics - Vital Signs Vital Signs Temp Pulse Resp BP Pulse Ox 01/05/17 22:13 98.4 F 97 14 119/66 96 01/05/17 19:47 98.3 F 92 16 167/86 95 - Laboratory Lab Results: Lab Results 01/06/17 01/06/17 01/06/17 Range/Units 00:23 00:23 00:23 WBC 8.7 (3.5-10.8) 10^3/ul RBC 3.81 L (4.0-5.4) 10^6/ul Hgb 11.9 L (14.0-18.0) g/dl Hct 35 L (42-52) % MCV 93 (80-94) fL MCH 31 (27-31) pg MCHC 34 (31-36) g/dl RDW 14 (10.5-15) % Plt Count 337 (150-450) 10^3/ul MPV 7 L (7.4-10.4) um3 Neut % (Auto) 71.8 (38-83) % Lymph % (Auto) 16.9 L (25-47) % [place] % (Auto) 8.3 (1-9) % Eos % (Auto) 2.3 (0-6) % Baso % (Auto) 0.7 (0-2) % Absolute Neuts (auto) 6.2 (1.5-7.7) 10^3/ul Absolute Lymphs (auto) 1.5 (1.0-4.8) 10^3/ul Absolute Monos (auto) 0.7 (0-0.8) 10^3/ul Absolute Eos (auto) 0.2 (0-0.6) 10^3/ul Absolute Basos (auto) 0.1 (0-0.2) 10^3/ul Absolute Nucleated RBC 0.01 10^3/ul Nucleated RBC % 0.1 INR (Anticoag Therapy) 1.14 H (0.89-1.11) APTT 31.5 (26.0-36.3) seconds Sodium 136 (133-145) mmol/L Potassium TNP Chloride 103 (101-111) mmol/L Carbon Dioxide 24 (22-32) mmol/L Anion Gap 9 (2-11) mmol/L BUN 24 (6-24) mg/dL Creatinine 1.14 (0.67-1.17) mg/dL Est GFR ( Amer) 80.3 (>60) Est GFR (Non-Af Amer) 62.5 (>60) BUN/Creatinine Ratio 21.1 H (8-20) Glucose 92 (70-100) mg/dL Lactic Acid (0.5-2.0) mmol/L Calcium 9.2 (8.6-10.3) mg/dL Total Bilirubin 0.60 (0.2-1.0) mg/dL AST TNP ALT 4 L (7-52) U/L Alkaline Phosphatase 107 H (34-104) U/L Troponin I 0.00 (<0.04) ng/mL Total Protein 7.1 (6.4-8.9) g/dL Albumin 3.8 (3.2-5.2) g/dL Globulin 3.3 (2-4) g/dL Albumin/Globulin Ratio 1.2 (1-3) 01/06/17 Range/Units 00:23 WBC (3.5-10.8) 10^3/ul RBC (4.0-5.4) 10^6/ul Hgb (14.0-18.0) g/dl Hct (42-52) % MCV (80-94) fL MCH (27-31) pg MCHC (31-36) g/dl RDW (10.5-15) % Plt Count (150-450) 10^3/ul MPV (7.4-10.4) um3 Neut % (Auto) (38-83) % Lymph % (Auto) (25-47) % [place] % (Auto) (1-9) % Eos % (Auto) (0-6) % Baso % (Auto) (0-2) % Absolute Neuts (auto) (1.5-7.7) 10^3/ul Absolute Lymphs (auto) (1.0-4.8) 10^3/ul Absolute Monos (auto) (0-0.8) 10^3/ul Absolute Eos (auto) (0-0.6) 10^3/ul Absolute Basos (auto) (0-0.2) 10^3/ul Absolute Nucleated RBC 10^3/ul Nucleated RBC % INR (Anticoag Therapy) (0.89-1.11) APTT (26.0-36.3) seconds Sodium (133-145) mmol/L Potassium Chloride (101-111) mmol/L Carbon Dioxide (22-32) mmol/L Anion Gap (2-11) mmol/L BUN (6-24) mg/dL Creatinine (0.67-1.17) mg/dL Est GFR ( Amer) (>60) Est GFR (Non-Af Amer) (>60) BUN/Creatinine Ratio (8-20) Glucose (70-100) mg/dL Lactic Acid 1.1 (0.5-2.0) mmol/L Calcium (8.6-10.3) mg/dL Total Bilirubin (0.2-1.0) mg/dL AST ALT (7-52) U/L Alkaline Phosphatase (34-104) U/L Troponin I (<0.04) ng/mL Total Protein (6.4-8.9) g/dL Albumin (3.2-5.2) g/dL Globulin (2-4) g/dL Albumin/Globulin Ratio (1-3) Result Diagrams: 01/06/17 00:23 01/06/17 00:23 Lab Statement: Any lab studies that have been ordered have been reviewed, and results considered in the medical decision making process. Course/Dx - Course Course Of Treatment: 76M presents with right leg swelling and redness for 8 days. He states he noticed some redness on lower leg that has since spread up to thigh. Was seen here three days ago on 01/02 and had neg u/s. was prescribed bactrim and keflex for cellulitis and has been taking it since. He denies any fevers. The nurse yoshi lines on legs above area of redness and the redness has spread up to this point. He admits to fatigue and pain with ambulate. He denies any fevers. He uses a walker to get around and lives on his own. He has been admitted for cellulitis before. he has a PMH of parkinsons. He is not diabetic. on exam has erythema and edema of right lower leg that is up to line drawn. wbc and lactic normal. gave dose of cefazolin. discussed with dr irving and says can go home on different antibiotic. discussed this option with patient and he wants to be admitted as says that legs has swollen up so much. dr irving agrees to admission. - Differential Diagnoses - Skin Complaint Differential Diagnoses: Abscess, Cellulitis, Systemic Illness - Diagnoses Provider Diagnoses: Cellulitis of right leg Discharge - Discharge Plan Condition: Stable Disposition: ADMITTED TO [facility] Referrals: Del Sullivan MD [Primary Care Provider] -
[2017-01-06] MEDS ORDERED: Acetaminophen TAB* 325 MG PO PRN (02:05)
[2017-01-06] MEDS ORDERED: Melatonin (NF) 3 MG TAB PO PRN (02:08)
[2017-01-06] MEDS ORDERED: traMADol TAB* 50 MG PO PRN (02:08)
[2017-01-06] MEDS ORDERED: Ondansetron INJ* 2 MG/ML VIAL IV PRN (02:08)
[2017-01-06] MEDS: Levofloxacin 500 MG IVPREMIX(* 500 MG/100 ML BAG IVPB SCH (04:37)
[2017-01-06] MEDS: NS 0.9% 1000 ML* 1,000 ML IV SCH ×2 (04:44→17:23)
[2017-01-06] MEDS: Omeprazole CAP* 20 MG PO SCH (05:58)
--- NOTE | 2017-01-06 06:39 | HP ---
H&P (Free Text) History and Physical: PCP: Ainsley Sullivan MD Urology: Maira Cerda MD Date/Time: 01/06/2017 0200 CC: RLE cellulitis not improving on outpatient ABX HPI: Mr Anderson is a 76YO male HX Parkinsonism, prostate CA, B iliac artery aneurysms, chronic BLE, HTN who developed redness and increased swelling of his RLE on 12/28/2016. It did not improve and so he was originally seen in [facility] ED , ruled out for DVT, and placed on PO sulfamethoxazole/trimethoprim DS & cephalexin. He has taken the ABX as prescribed. However, the redness & swelling have not improved. He denies F/C, sweats, N/V, diarrhea, chest pain, SOB, or other issues. As such, he will be admitted observation for initiation of IV ABX and monitoring for improvement. Levofloxacin will be used as it has a separate mechanism of action that what he was initially treated with as well as an oral formulation with nearly IV level bioavailability. 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 prostate CA follow by Maira Cerda MD urology chronic BLE edema HTN Ambulatory Orders Ascorbic Acid TAB* [Vitamin C TAB*] 500 mg PO DAILY 03/31/12 Calcium Carbonate-Vitamin D [Calcium 500-125 mg-Unit] 1 tab PO DAILY 10/22/12 QUEtiapine TAB* [Seroquel TAB*] 37.5 mg PO 2000 10/22/12 Cephalexin CAP* [Keflex CAP*] 500 mg PO QID #40 cap 01/02/17 Sulfamethox/Trimethoprim DS* [Bactrim DS 800/160 TAB*] 1 tab PO BID #20 tab Carbidopa/Levodop 25/100 MG(*) [Sinemet 25/100 TAB(*)] 0.5 tab PO DAILY PRN Carbidopa/Levodop 25/100 MG(*) [Sinemet 25/100 TAB(*)] 1.5 tab PO 1730 01/06/17 Carbidopa/Levodop 25/100 MG(*) [Sinemet 25/100 TAB(*)] 2 tab PO 0700,1030,1400 01/06/17 Carbidopa/Levodop CR 50/200(*) [Sinemet CR 50/200(*)] 1 tab.cr PO BID 01/06/17 Donepezil TAB* [Aricept 5 MG TAB*] 10 mg PO 199901/06/17 Potassium Chlor TAB* [Klor Con ER TAB 10 MEQ*] 10 meq PO QAM 01/06/17 Pramipexole TAB* [Mirapex TAB*] 0.5 mg PO 0700,1000,1500 01/06/17 QUEtiapine TAB* [SEROquel TAB*] 62.5 mg PO BEDTIME 01/06/17 Allergies No Known Allergies Allergy (Verified 02/21/16 06:38) PSurgHx tonsillectomy SocHx: no tobacco, alcohol, or recreational drugs; , lives alone at [email or web address], uses a rolling walker to ambulate; full code status FamHx: Mother: passed in her 90s, CAD; Father: passed in his 90s, CAD; Sister: passed in her 60s 2nd thoracic aortic aneurysm ROS: as above, otherwise reviewed and all were negative vitals: Vital Signs Temp 36.6 C 01/06/17 03:47 Pulse 80 01/06/17 03:30 Resp 14 01/05/17 22:13 BP 127/78 01/06/17 03:30 Pulse Ox 98 01/06/17 03:30 Intake & Output 01/05/17 01/05/17 01/06/17 11:59 23:59 11:59 Intake Total 175 Balance 175 Weight 78.018 kg Intake: IV Fluids 175 Oral 0 Constitutional: NAD, normally developed, well-nourished elderly white male HEENM: atraumatic; sclera/conjunctiva: anicteric/clear; hearing: clinically intact; oropharynx: clear, mucosa tacky Neck: soft tissue: non-tender; thyroid: normal Pulmonary: clear to auscultation bilaterally, good aeration, no accessory muscle use CV: RR/RR, normal S1S2, no carotid bruit, no jugular venous distention, 2+ B DP/ PT, 1+ LLE edema, 2+ RLE edema Abdominal: soft, non-distended, non-tender, no rebound/guarding/rigidity, normoactive bowel sounds, no hepatosplenomegaly or masses, no costovertebral angle tenderness Musculoskeletal: general: grossly intact, RLE is tender to palpation below the knee circumferentially corresponding to the area of erythema; R foot is warm & dry Integumental: RLE with circumferential erythema and scaling below the knee, light erythema in the proximal 1/4 of the lower leg and angry redness in the distal 3/4 Psychiatric orientation: AA&O to PPS affect: calm mood: cooperative eye contact: good content: reliable responses: timely insight: good to fair Testing: Lab Results 01/06/17 01/06/17 01/06/17 Range/Units 00:23 00:23 00:23 WBC 8.7 (3.5-10.8) 10^3/ul RBC 3.81 L (4.0-5.4) 10^6/ul Hgb 11.9 L (14.0-18.0) g/dl Hct 35 L (42-52) % MCV 93 (80-94) fL MCH 31 (27-31) pg MCHC 34 (31-36) g/dl RDW 14 (10.5-15) % Plt Count 337 (150-450) 10^3/ul MPV 7 L (7.4-10.4) um3 Neut % (Auto) 71.8 (38-83) % Lymph % (Auto) 16.9 L (25-47) % [place] % (Auto) 8.3 (1-9) % Eos % (Auto) 2.3 (0-6) % Baso % (Auto) 0.7 (0-2) % Absolute Neuts (auto) 6.2 (1.5-7.7) 10^3/ul Absolute Lymphs (auto) 1.5 (1.0-4.8) 10^3/ul Absolute Monos (auto) 0.7 (0-0.8) 10^3/ul Absolute Eos (auto) 0.2 (0-0.6) 10^3/ul Absolute Basos (auto) 0.1 (0-0.2) 10^3/ul Absolute Nucleated RBC 0.01 10^3/ul Nucleated RBC % 0.1 INR (Anticoag Therapy) 1.14 H (0.89-1.11) APTT 31.5 (26.0-36.3) seconds Sodium 136 (133-145) mmol/L Potassium TNP Chloride 103 (101-111) mmol/L Carbon Dioxide 24 (22-32) mmol/L Anion Gap 9 (2-11) mmol/L BUN 24 (6-24) mg/dL Creatinine 1.14 (0.67-1.17) mg/dL Est GFR ( Amer) 80.3 (>60) Est GFR (Non-Af Amer) 62.5 (>60) BUN/Creatinine Ratio 21.1 H (8-20) Glucose 92 (70-100) mg/dL Lactic Acid (0.5-2.0) mmol/L Calcium 9.2 (8.6-10.3) mg/dL Total Bilirubin 0.60 (0.2-1.0) mg/dL AST TNP ALT 4 L (7-52) U/L Alkaline Phosphatase 107 H (34-104) U/L Troponin I 0.00 (<0.04) ng/mL Total Protein 7.1 (6.4-8.9) g/dL Albumin 3.8 (3.2-5.2) g/dL Globulin 3.3 (2-4) g/dL Albumin/Globulin Ratio 1.2 (1-3) 01/06/ Range/Units 00:23 WBC (3.5-10.8) 10^3/ul RBC (4.0-5.4) 10^6/ul Hgb (14.0-18.0) g/dl Hct (42-52) % MCV (80-94) fL MCH (27-31) pg MCHC (31-36) g/dl RDW (10.5-15) % Plt Count (150-450) 10^3/ul MPV (7.4-10.4) um3 Neut % (Auto) (38-83) % Lymph % (Auto) (25-47) % [place] % (Auto) (1-9) % Eos % (Auto) (0-6) % Baso % (Auto) (0-2) % Absolute Neuts (auto) (1.5-7.7) 10^3/ul Absolute Lymphs (auto) (1.0-4.8) 10^3/ul Absolute Monos (auto) (0-0.8) 10^3/ul Absolute Eos (auto) (0-0.6) 10^3/ul Absolute Basos (auto) (0-0.2) 10^3/ul Absolute Nucleated RBC 10^3/ul Nucleated RBC % INR (Anticoag Therapy) (0.89-1.11) APTT (26.0-36.3) seconds Sodium (133-145) mmol/L Potassium Chloride (101-111) mmol/L Carbon Dioxide (22-32) mmol/L Anion Gap (2-11) mmol/L BUN (6-24) mg/dL Creatinine (0.67-1.17) mg/dL Est GFR ( Amer) (>60) Est GFR (Non-Af Amer) (>60) BUN/Creatinine Ratio (8-20) Glucose (70-100) mg/dL Lactic Acid 1.1 (0.5-2.0) mmol/L Calcium (8.6-10.3) mg/dL Total Bilirubin (0.2-1.0) mg/dL AST ALT (7-52) U/L Alkaline Phosphatase (34-104) U/L Troponin I (<0.04) ng/mL Total Protein (6.4-8.9) g/dL Albumin (3.2-5.2) g/dL Globulin (2-4) g/dL Albumin/Globulin Ratio (1-3) US RLE venous: IMPRESSION: 1. NO RIGHT LOWER EXTREMITY DEEP VEIN THROMBOSIS 2. MILDLY ENLARGED RIGHT INGUINAL LYMPH NODE Impression: non-toxic 76M presenting with RLE cellulitis failed outpatient ABX DIAGNOSIS & PLAN Primary RLE cellulitis : IV levofloxacin : blood CXs : pain control : supportive care Secondary Parkinsonism w/ mild dementia : continue carbi/levodopa & pramipexole at outpatient schedule & dosing : continue donepezil B iliac artery aneurysms : no acute issues prostate CA : continue outpatient surveillance via Maira Cerda MD urology HTN : not on medications, monitor Admission Rational: observation for cellulitis failed outpatient ABX DVTp: heparin SQ Code Status: full HCP: sonHaroon
[2017-01-06 06:51] LABS: Hematocrit 32 % (42-52); Hemoglobin 10.8 g/dl (14.0-18.0); Mean Corpuscular HGB Conc 34 g/dl (31-36); Mean Corpuscular Hemoglobin 31 pg (27-31); Mean Corpuscular Volume 92 fL (80-94); Mean Platelet Volume 6 um3 (7.4-10.4); Red Blood Count 3.44 10^6/ul (4.0-5.4); Red Cell Distribution Width 13 % (10.5-15); White Blood Count 5.8 10^3/ul (3.5-10.8)
[2017-01-06 07:05] LABS: BUN/Creatinine Ratio 21.4 (8-20); Calcium 8.3 mg/dL (8.6-10.3); EGFR African American 95.6 (>60); EGFR Non-African American 74.4 (>60); Potassium 3.9 mmol/L (3.5-5.0)
[2017-01-06] MEDS: Docusate CAP* 100 MG PO SCH ×2 (07:29→21:07)
[2017-01-06] MEDS: Nystatin CREAM* 15 GM TUBE TOPICAL SCH ×3 (07:29→21:09)
[2017-01-06] MEDS ORDERED: Carbidopa/Levodop 25/100 MG TAB(*) PO PRN (10:14)
--- NOTE | 2017-01-06 10:37 | PN ---
Subjective Date of Service: 01/06/17 Interval History: Patient admitted overnight with RLE cellulitis. According to patient redness extended past lines on R calf in ED. Patient wants his Parkinsons medications, cannot walk to [facility] without them. Family History: Unchanged from Admission Social History: Unchanged from Admission Past Medical History: Unchanged from Admission Objective Active Medications: Acetaminophen (Tylenol Tab*) 650 mg PO Q6H PRN PRN Reason: FEVER/PAIN Ascorbic Acid (Vitamin C Tab*) 500 mg PO DAILY [facility] Calcium/Vitamin D (Oscal D Tab 250/125*) 1 tab PO DAILY [facility] Carbidopa/Levodopa (Sinemet 25/100 Tab(*)) 0.5 tab PO Q4H PRN PRN Reason: TREMORS Carbidopa/Levodopa (Sinemet 25/100 Tab(*)) 2 tab PO 0700,1030,1400 [facility] Carbidopa/Levodopa (Sinemet 25/100 Tab(*)) 1.5 tab PO 1730 [facility] Carbidopa/Levodopa (Sinemet Cr 50/200(*)) 1 tab.cr PO 0700,1730 [facility] Docusate Sodium (Colace Cap*) 200 mg PO BID [facility] Last Admin: 01/06/17 07:29 Dose: 200 mg Donepezil HCl (Aricept Tab*) 10 mg PO 2000 [facility] Heparin Sodium (Porcine) (Heparin Vial(*)) 5,000 units SUBCUT Q8HR [facility] Levofloxacin/Dextrose (Levaquin 500 Mg Ivpremix(*)) 500 mg in 100 mls @ 100 mls /hr IVPB Q24H [facility] Last Admin: 01/06/17 04:37 Dose: 100 mls/hr Sodium Chloride (Ns 0.9% 1000 Ml*) 1,000 mls @ 75 mls/hr IV PER RATE [facility] Last Admin: 01/06/17 04:44 Dose: 75 mls/hr Melatonin (Melatonin (Nf)) 3 mg PO BEDTIME PRN; Protocol PRN Reason: Sleep Nystatin (Nystatin Cream*) 1 applic TOPICAL TID [facility] Last Admin: 01/06/17 07:29 Dose: 1 applic Omeprazole (Prilosec Cap*) 20 mg PO DAILY@0600 [facility] Last Admin: 01/06/17 05:58 Dose: 20 mg Ondansetron HCl (Zofran Inj*) 4 mg IV Q6H PRN PRN Reason: NAUSEA Potassium Chloride (Klor Con Er Tab*) 10 meq PO QAM [facility] Pramipexole Dihydrochloride (Mirapex Tab*) 0.5 mg PO 0700,1030,1400 [facility] Quetiapine Fumarate (Seroquel Tab*) 37.5 mg PO 2000 [facility] Quetiapine Fumarate (Seroquel Tab*) 62.5 mg PO BEDTIME [facility] Tramadol HCl (Ultram*) 50 mg PO Q6H PRN PRN Reason: PAIN Vital Signs 01/06/17 01/06/17 01/06/17 03:30 03:47 04:20 Temperature 36.6 C 36.4 C Pulse Rate 80 88 Respiratory 18 Rate Blood Pressure 127/78 145/75 (mmHg) O2 Sat by Pulse 98 98 Oximetry 01/06/17 01/06/17 06:51 09:40 Temperature 36.4 C Pulse Rate 79 Respiratory 16 18 Rate Blood Pressure 125/72 (mmHg) O2 Sat by Pulse 97 Oximetry Oxygen Devices in Use Now: None Appearance: no distress, pleasant Eyes: No Scleral Icterus Ears/Nose/Mouth/Throat: Clear Oropharnyx Neck: No Thyroid Enlargement, Masses Respiratory: Clear to Auscultation Cardiovascular: NL Sounds; No Murmurs; No JVD Abdominal: NL Sounds; No Tenderness; No Distention Extremities: - - erythema, tenderness, edema RLE up to upper jacome, calf, no open areas, bilat chronic venostasis changes Lines/Tubes/Other Access: Clean, Dry and Intact Peripheral IV Nutrition: Taking PO's Result Diagrams: 01/06/17 06:36 01/06/17 06:36 Additional Lab and Data: Lab Results Assess/Plan/Problems-Billing Assessment: 76 year old man with parkinson's, chronic venous stasis in legs, admitted w/ RLE cellulitis. - Patient Problems (1) Cellulitis Current Visit: No Status: Acute Priority: High Code(s): L03.90 - CELLULITIS, UNSPECIFIED SNOMED Code(s): 946503923 Comment: -Will continue IV levaquin -add vanco if not clinically responding tomorrow. -continue elevation (2) Parkinson disease Current Visit: No Status: Chronic Priority: Medium Code(s): G20 - PARKINSON'S DISEASE SNOMED Code(s): 76863507 Comment: All home doses of carbidopa/Ldopa, pramipexole ordered per his schedule, (3) DVT prophylaxis Current Visit: Yes Status: Acute Priority: Medium Code(s): WSJ7384 - SNOMED Code(s): 713046575 Comment: on SC heparin Status and Disposition: Not responding quickly to IV levaquin, will require at least another 24h of inpatient stay.
[2017-01-06] MEDS: Potassium Chlor TAB* 10 MEQ TAB.ER PO SCH (10:56)
[2017-01-06] MEDS: Carbidopa/Levodop 25/100 MG TAB(*) PO SCH ×3 (10:56→17:22)
[2017-01-06] MEDS: Ascorbic Acid TAB* 500 MG PO SCH (10:56)
[2017-01-06] MEDS: Calcium/Vitamin D TAB 250/125* TAB PO SCH (10:56)
[2017-01-06] MEDS: Pramipexole TAB* 0.5 MG PO SCH ×2 (11:01→14:00)
[2017-01-06 12:29] LABS: Urine Bilirubin Negative (Negative); Urine Glucose Negative (Negative); Urine Nitrite Negative (Negative)
[2017-01-06] MEDS: Carbidopa/Levodop CR 50/200(*) TAB.CR PO SCH (17:22)
[2017-01-06] MEDS ORDERED: Donepezil TAB* 5 MG PO SCH (20:00)
[2017-01-06] MEDS ORDERED: QUEtiapine TAB* 25 MG PO SCH ×2 (20:00→21:00)
[2017-01-07] MEDS: Levofloxacin 500 MG IVPREMIX(* 500 MG/100 ML BAG IVPB SCH (02:47)
[2017-01-07] MEDS: Omeprazole CAP* 20 MG PO SCH (05:37)
[2017-01-07] MEDS: Heparin VIAL(*) 5000 UNITS/ML VIAL (FIVE THOUSAND) SUBCUT SCH ×2 (05:40→14:03)
[2017-01-07] MEDS: Carbidopa/Levodop CR 50/200(*) TAB.CR PO SCH ×2 (06:53→17:22)
[2017-01-07] MEDS: Carbidopa/Levodop 25/100 MG TAB(*) PO SCH ×4 (06:53→17:22)
[2017-01-07] MEDS: Pramipexole TAB* 0.5 MG PO SCH ×3 (06:54→14:03)
[2017-01-07] MEDS: NS 0.9% 1000 ML* 1,000 ML IV SCH (08:20)
[2017-01-07] MEDS: Calcium/Vitamin D TAB 250/125* TAB PO SCH (08:25)
[2017-01-07] MEDS: Docusate CAP* 100 MG PO SCH (08:25)
[2017-01-07] MEDS: Potassium Chlor TAB* 10 MEQ TAB.ER PO SCH (08:25)
[2017-01-07] MEDS: Ascorbic Acid TAB* 500 MG PO SCH (08:25)
[2017-01-07] MEDS: Nystatin CREAM* 15 GM TUBE TOPICAL SCH ×2 (08:25→14:03)
[2017-01-07 12:10] VITALS: BP 132/62
--- NOTE | 2017-01-07 14:22 | PN ---
Progress Note - Progress Note Date of Service: 01/07/17 Note: Discharge Note Primary Diagnosis: right lower extremity cellulitis Secondary Diagnoses: Parkinsons disease mild dementia, likely lewy body hypertension prostate cancer bilateral iliac artery aneurysms chronic edema due to venous stasis Consultations: none Procedures: none Pertinent lab/radiology test results: Laboratory Tests 01/06/17 01/06/17 01/06/17 00:23 06:36 06:36 WBC 5.8 RBC 3.44 L Hgb 10.8 L Hct 32 L Plt Count 263 Sodium 136 Potassium 3.9 Chloride 106 Carbon Dioxide 24 BUN 21 Creatinine 0.98 Glucose 87 Lactic Acid Calcium 8.3 L Alkaline Phosphatase 107 H 01/06/17 06:36 WBC RBC Hgb Hct Plt Count Sodium Potassium Chloride Carbon Dioxide BUN Creatinine Glucose Lactic Acid 0.6 Calcium Alkaline Phosphatase Blood cultures X2 negative to date Tests pending upon discharge: none Physical Exam: Selected Entries 01/07/17 12:10 Temperature 36.7 C Pulse Rate 68 Respiratory 16 Rate Blood Pressure 132/62 (mmHg) O2 Sat by Pulse 98 Oximetry Alert, no distress resting tremor RT hand RLE: 2+ edema to knee, erythema in jacome/calf, receeded from line drawn on admission Chronic venous stasis changes to shins bilat
--- NOTE | 2017-01-08 03:59 | DS ---
CC: Dr. Sullivan * DISCHARGE SUMMARY: DATE OF ADMISSION: 01/06/17 DATE OF DISCHARGE: 01/07/17 PRINCIPAL DIAGNOSIS: Right lower extremity cellulitis. SECONDARY DIAGNOSES: 1. Parkinson's disease. 2. Mild dementia, likely Lewy body dementia. 3. Hypertension. 4. Prostate cancer. 5. Bilateral iliac artery aneurysm. 6. Chronic bilateral lower extremity edema with chronic venostasis. MEDICATIONS ON DISCHARGE: 1. Levaquin 500 mg p.o. daily for 5 days. 2. Ascorbic acid 500 mg p.o. daily. 3. Calcium with vitamin D 1 tablet p.o. daily. 4. Carbidopa/levodopa 25/100 mg tablets one half tab q.4 hours while awake plus carbidopa/levodopa 25/100 one and a half tabs at 1730 plus carbidopa/ levodopa 25/100 two tabs at 0700, 1030 and 1400. 5. He also takes carbidopa levodopa controlled release 50/200 one tab p.o. b.i.d. 6. Docusate 200 mg p.o. b.i.d. 7. Donepezil 10 mg p.o. q.p.m. 8. Nystatin cream to the groin area daily for 1 week. 9. Potassium chloride 10 mEq p.o. q.a.m. 10. Mirapex 0.5 mg p.o. t.i.d. 11. Seroquel 37.5 mg p.o. at 8 p.m. 12. Seroquel 62.5 mg p.o. q.h.s. HOSPITAL COURSE: The patient was admitted with worsening pain, erythema, and swelling of his right lower extremity that was not responding to oral antibiotics. The patient had been in the emergency department and had lower extremity Dopplers completed to rule out DVT. This occurred on 01/02/17. The patient was admitted for intravenous Levaquin and elevation of the right lower extremity. The patient had improvement within 12 hours of treatment with erythema that had gone initially up to his knee bilaterally, which was seen to improve. On the day of discharge, the erythema had improved further and the patient is having less pain. The patient lives alone, but has 2 sons who come by to help him, and he has a reclining chair that can allow him to elevate his leg. The patient during the hospital stay had normal white count at 5.8, normal electrolytes, lactic acid 0.6, alkaline phosphatase is 107 which was mildly high. DISPOSITION: To home where he lives alone. ACTIVITY: To walk as tolerated and wear edema stockings when upright and to keep the leg elevated when at rest. I am recommending the patient have visiting nurse services when he goes home and this should be arranged through discharge planners on Sunday. [id number]/[facility] #: [id number] [facility]
[2017-01-08] MEDS ORDERED: Levofloxacin TAB* 500 MG PO SCH (06:30)
== END 2017-01-07 18:15 | disposition home or self-care (01) ==
LOC: ED 19:45 → MED 01-06 02:03
PROVIDERS: ADMIT Hospitalist; ATTEND Internal Medicine
DX: L03.115 Cellulitis of right lower limb (principal); G20 Parkinson's disease; G31.83 Neurocognitive disorder with Lewy bodies; F02.80 Dementia in other diseases classified elsewhere, unspecified severity, without behavioral disturbance, psychotic disturbance, mood disturbance, and anxiety; I10 Essential (primary) hypertension; Z85.46 Personal history of malignant neoplasm of prostate; I72.3 Aneurysm of iliac artery; R60.9 Edema, unspecified; Z79.899 Other long term (current) drug therapy
CPT/HCPCS: 36415; 80048; 80053; 81003; 83605; 84484; 85025; 85027; 85610; 85730; 87040; 96361; 96365; 96366; 96367; 96372; 99284; A9270-GY; G0378; J0690; J1644; J1956

== ENCOUNTER 2019-09-06 14:10 | Inpatient (IN) ==
[2019-09-06] MEDS ORDERED: NS 0.9% 1000 ml BAG 1,000 ML IV ONE ×2 (14:15→14:58)
[2019-09-06 14:28] LABS: ABS Lymphocytes 1.4 10^3/ul (1.0-4.8); Hematocrit 44 % (42-52); Hemoglobin 14.8 g/dL (14.0-18.0); Lymphocyte % 10.2 %; Mean Corpuscular HGB Conc 34 g/dL (31-36); Mean Corpuscular Hemoglobin 31 pg (27-31); Mean Corpuscular Volume 93 fL (80-94); Mean Platelet Volume 7.2 fL (7.4-10.4); Platelet Count 198 10^3/uL (150-450); Red Blood Count 4.78 10^6 /uL (4.18-5.48); Red Cell Distribution Width 14 % (10-15); White Blood Count 13.4 10^3/uL (3.5-10.8)
[2019-09-06 14:48] LABS: ALT 8 U/L (7-52); AST 179 U/L (13-39); Albumin 3.9 g/dL (3.2-5.2); Albumin/Globulin Ratio 1.4 (1-3); Alkaline Phosphatase 106 U/L (34-104); Anion Gap 12 mmol/L (2-11); Blood Urea Nitrogen 41 mg/dL (6-24); CO2 Carbon Dioxide 22 mmol/L (22-32); Calcium 9.4 mg/dL (8.6-10.3); Chloride 107 mmol/L (101-111); EGFR African American 65.6 (>60); EGFR Non-African American 54.2 (>60); Globulin 2.7 g/dL (2-4); Glucose 127 mg/dL (70-100); Potassium 4.2 mmol/L (3.5-5.0); Sodium 141 mmol/L (135-145); Total Protein 6.6 g/dL (6.4-8.9)
[2019-09-06 15:03] LABS: Creatine Kinase 8120 U/L (10-223)
[2019-09-06 15:19] LABS: Acetaminophen < 15 mcg/mL; Salicylate < 2.50 mg/dL (<30)
[2019-09-06 15:19] LABS: Urine Appearance Cloudy; Urine Bilirubin Negative (Negative); Urine Blood 2+ (Negative); Urine Color Amber; Urine Glucose Negative (Negative); Urine Ketones Trace (Negative); Urine Nitrite Negative (Negative); Urine Protein 2+(100 mg/dL) (Negative); Urine Specific Gravity 1.026 (1.010-1.030); Urine Urobilinogen Negative (Negative)
[2019-09-06 15:30] LABS: Urine Bacteria Absent (Absent); Urine Red Blood Cell 1+(3-5/hpf) (Absent); Urine White Blood Cell Trace(0-5/hpf) (Absent)
[2019-09-06 15:33] LABS: TSH Ultra Thyroid Stim Horm 4.23 mcIU/mL (0.34-5.60)
[2019-09-06] MEDS ORDERED: Ondansetron 4 mg VIAL 2 MG/ML 2 ml VIAL IV PRN (16:01)
[2019-09-06] MEDS: Carbidopa/Levodop 25/100 MG TAB PO SCH ×2 (19:27→20:17)
[2019-09-06] MEDS: Enoxaparin 40 MG/0.4 ML SYR SUBCUT SCH (20:07)
[2019-09-06] MEDS: NS 0.9% 1000 ml BAG 1,000 ML IV SCH (20:08)
[2019-09-06] MEDS: Carbidopa/Levodop CR 50/200 TAB.CR PO SCH (20:08)
[2019-09-06 22:52] LABS: Troponin I 0.55 ng/mL (<0.03)
[2019-09-07 00:14] LABS: Magnesium 2.2 mg/dL (1.9-2.7)
[2019-09-07 02:41] LABS: Troponin I 0.56 ng/mL (<0.03)
[2019-09-07 05:30] LABS: ABS Basophils 0.1 10^3/ul (0-0.2); ABS Lymphocytes 1.3 10^3/ul (1.0-4.8); ABS Monocytes 0.7 10^3/ul (0-0.8); ABS Neutrophils 6.5 10^3/ul (1.5-7.7); Eosinophil % 0.2 %; Hematocrit 37 % (42-52); Hemoglobin 12.7 g/dL (14.0-18.0); Lymphocyte % 15.4 %; Mean Corpuscular HGB Conc 35 g/dL (31-36); Mean Corpuscular Hemoglobin 32 pg (27-31); Mean Corpuscular Volume 92 fL (80-94); Mean Platelet Volume 7.3 fL (7.4-10.4); Nucleated Red Blood Cells % 0.1; Platelet Count 145 10^3/uL (150-450); Red Cell Distribution Width 14 % (10-15); White Blood Count 8.5 10^3/uL (3.5-10.8)
[2019-09-07 05:47] LABS: BUN/Creatinine Ratio 44.2 (8-20); Blood Urea Nitrogen 38 mg/dL (6-24); CO2 Carbon Dioxide 26 mmol/L (22-32); Calcium 7.7 mg/dL (8.6-10.3); EGFR African American 103.8 (>60); EGFR Non-African American 85.8 (>60); Glucose 85 mg/dL (70-100); Potassium 3.5 mmol/L (3.5-5.0); Sodium 143 mmol/L (135-145)
[2019-09-07 05:49] LABS: Anion Gap 4 mmol/L (2-11); Chloride 113 mmol/L (101-111)
[2019-09-07 05:52] LABS: Troponin I 0.46 ng/mL (<0.03)
[2019-09-07 06:07] LABS: Creatine Kinase 4612 U/L (10-223)
[2019-09-07] MEDS: Carbidopa/Levodop 25/100 MG TAB PO SCH ×5 (06:21→18:55)
[2019-09-07] MEDS: NS 0.9% 1000 ml BAG 1,000 ML IV SCH ×2 (06:53→18:55)
[2019-09-07] MEDS: Calcium Carb 1250 mg TAB (500 mg elemental calcium) PO SCH (08:53)
[2019-09-07] MEDS: Carbidopa/Levodop CR 50/200 TAB.CR PO SCH ×2 (08:53→21:45)
[2019-09-07] MEDS: Potassium Chlor 10 meq TAB PO SCH (08:53)
[2019-09-07] MEDS: Enoxaparin 40 MG/0.4 ML SYR SUBCUT SCH (16:23)
[2019-09-08] MEDS: NS 0.9% 1000 ml BAG 1,000 ML IV SCH (05:02)
[2019-09-08] MEDS: Carbidopa/Levodop 25/100 MG TAB PO SCH ×5 (06:35→18:09)
[2019-09-08] MEDS: Calcium Carb 1250 mg TAB (500 mg elemental calcium) PO SCH (08:40)
[2019-09-08] MEDS: Carbidopa/Levodop CR 50/200 TAB.CR PO SCH ×2 (08:40→21:21)
[2019-09-08] MEDS: Potassium Chlor 10 meq TAB PO SCH (08:41)
[2019-09-08 09:01] LABS: BUN/Creatinine Ratio 36.8 (8-20); Calcium 7.4 mg/dL (8.6-10.3); EGFR African American 136.1 (>60); EGFR Non-African American 112.5 (>60); Potassium 3.5 mmol/L (3.5-5.0)
[2019-09-08] MEDS ORDERED: Furosemide 20 mg/2 ml IV VIAL IV SLOW PU ONE ×2 (13:38)
[2019-09-08] MEDS: Enoxaparin 40 MG/0.4 ML SYR SUBCUT SCH (17:15)
[2019-09-08 22:40] LABS: BUN/Creatinine Ratio 31.9 (8-20); Calcium 7.7 mg/dL (8.6-10.3); EGFR African American 127.4 (>60); EGFR Non-African American 105.3 (>60); Potassium 3.6 mmol/L (3.5-5.0)
[2019-09-08] MEDS ORDERED: NS 0.9% 1000 ml BAG 1,000 ML IV SCH (23:15)
[2019-09-09 07:00] LABS: ABS Eosinophils 0.1 10^3/ul (0-0.6); ABS Monocytes 0.5 10^3/ul (0-0.8); ABS Neutrophils 6.1 10^3/ul (1.5-7.7); Eosinophil % 1.3 %; Hematocrit 35 % (42-52); Mean Corpuscular HGB Conc 35 g/dL (31-36); Mean Corpuscular Hemoglobin 32 pg (27-31); Mean Corpuscular Volume 93 fL (80-94); Mean Platelet Volume 7.4 fL (7.4-10.4); Platelet Count 122 10^3/uL (150-450); Red Blood Count 3.75 10^6 /uL (4.18-5.48); Red Cell Distribution Width 14 % (10-15); White Blood Count 7.8 10^3/uL (3.5-10.8)
[2019-09-09 07:19] LABS: Calcium 7.7 mg/dL (8.6-10.3); EGFR African American 133.8 (>60); EGFR Non-African American 110.6 (>60); Potassium 3.4 mmol/L (3.5-5.0)
[2019-09-09] MEDS: Carbidopa/Levodop 25/100 MG TAB PO SCH ×5 (07:21→18:06)
[2019-09-09] MEDS ORDERED: Potassium Chlor 20 meq TAB.ER PO ONE (09:22)
[2019-09-09] MEDS: Calcium Carb 1250 mg TAB (500 mg elemental calcium) PO SCH (09:38)
[2019-09-09] MEDS: Potassium Chlor 10 meq TAB PO SCH (09:39)
[2019-09-09] MEDS: Carbidopa/Levodop CR 50/200 TAB.CR PO SCH (09:50)
[2019-09-09] MEDS: Enoxaparin 40 MG/0.4 ML SYR SUBCUT SCH (16:51)
[2019-09-09] MEDS ORDERED: Magnesium Hydroxide LIQ 30 ML UDC PO PRN (17:06)
[2019-09-09 19:54] VITALS: BP 121/47
== END 2019-09-09 19:00 | DRG 683 ==
LOC: ED 14:10 → MED 19:19
PROVIDERS: ADMIT Internal Medicine; ATTEND Internal Medicine

== ENCOUNTER 2019-12-17 11:16 | Inpatient (IN) ==
[2019-12-17] MEDS ORDERED: NS 0.9% 1000 ml BAG 2,180 ML IV ONE (11:44)
[2019-12-17] MEDS ORDERED: Cefepime 2 GM in Dextrose 2 GM/50 ML BAG IV ONE (11:46)
[2019-12-17 11:54] LABS: ABS Lymphocytes 0.5 10^3/ul (1.0-4.8); ABS Monocytes 0.2 10^3/ul (0-0.8); ABS Neutrophils 9.2 10^3/ul (1.5-7.7); Eosinophil % 0.1 %; Hematocrit 31 % (42-52); Hemoglobin 10.4 g/dL (14.0-18.0); Lymphocyte % 4.7 %; Mean Corpuscular HGB Conc 34 g/dL (31-36); Mean Corpuscular Hemoglobin 31 pg (27-31); Mean Corpuscular Volume 92 fL (80-94); Mean Platelet Volume 6.7 fL (7.4-10.4); Platelet Count 250 10^3/uL (150-450); Red Blood Count 3.36 10^6 /uL (4.18-5.48); Red Cell Distribution Width 14 % (10-15)
[2019-12-17 12:18] LABS: Albumin 2.8 g/dL (3.2-5.2); Albumin/Globulin Ratio 0.9 (1-3); BUN/Creatinine Ratio 31.3 (8-20); C Reactive Protein 274.35 mg/L (<8.01); Calcium 8.1 mg/dL (8.6-10.3); EGFR African American 138.5 (>60); EGFR Non-African American 114.4 (>60); Potassium 4.3 mmol/L (3.5-5.0); Total Bilirubin 0.6 mg/dL (0.2-1.0); Total Protein 5.8 g/dL (6.4-8.9)
[2019-12-17 12:20] LABS: Troponin I 0.01 ng/mL (<0.03)
[2019-12-17 12:22] LABS: INR 1.49 (0.82-1.09)
[2019-12-17] MEDS ORDERED: Vancomycin 1,000 MG in NS 0.9% 250 ml 250 ML IVPB ONE (13:44)
[2019-12-17] MEDS ORDERED: Vancomycin per Pharmacy 1 EA NOTE FOLLOW UP SCH (14:00)
[2019-12-17] MEDS ORDERED: Carbidopa/Levodop 25/100 MG TAB PO ONE (15:06)
[2019-12-17] MEDS ORDERED: VANCOMYCIN 1250 MG X 1 DOSE, THEN PER PHARMACY PROTOCOL IVPB ONE (15:30)
[2019-12-17] MEDS ORDERED: Carbidopa/Levodop 25/100 MG TAB PO SCH (16:00)
[2019-12-17 18:10] LABS: Urine Appearance Cloudy; Urine Bilirubin Negative (Negative); Urine Blood Negative (Negative); Urine Color Yellow; Urine Glucose Negative (Negative); Urine Ketones 1+ (Negative); Urine Nitrite Negative (Negative); Urine Protein 1+(30 mg/dL) (Negative); Urine Specific Gravity 1.026 (1.010-1.030); Urine Urobilinogen Negative (Negative)
[2019-12-17 18:13] LABS: Urine Bacteria Absent (Absent); Urine Red Blood Cell Absent (Absent); Urine White Blood Cell Absent (Absent)
[2019-12-17] MEDS: Carbidopa/Levodop 25/100 MG TAB PO SCH (21:10)
[2019-12-17] MEDS: Carbidopa/Levodop CR 50/200 TAB.CR PO SCH (21:11)
[2019-12-17] MEDS: cefTRIAXone 1 gm/50 mL NS BAG 1 GM/50 ML BAG IVPB SCH (21:13)
[2019-12-17] MEDS: Heparin 5000 UNITS/ML 1 mL VIAL SUBCUT SCH (21:15)
[2019-12-18] MEDS: Vancomycin 1000 MG in NS 0.9% 250 ML IVPB SCH ×2 (01:57→14:26)
[2019-12-18] MEDS: Zinc Oxide 16% PASTE (Butt Paste) 30 gm TUBE TOPICAL SCH ×2 (01:57→09:00)
[2019-12-18 06:38] LABS: ABS Eosinophils 0.1 10^3/ul (0-0.6); ABS Lymphocytes 0.8 10^3/ul (1.0-4.8); ABS Monocytes 0.4 10^3/ul (0-0.8); ABS Neutrophils 7.2 10^3/ul (1.5-7.7); Eosinophil % 0.7 %; Hematocrit 30 % (42-52); Lymphocyte % 9.3 %; Mean Corpuscular HGB Conc 33 g/dL (31-36); Mean Corpuscular Hemoglobin 31 pg (27-31); Mean Corpuscular Volume 92 fL (80-94); Platelet Count 202 10^3/uL (150-450); Red Blood Count 3.24 10^6 /uL (4.18-5.48); Red Cell Distribution Width 14 % (10-15); White Blood Count 8.5 10^3/uL (3.5-10.8)
[2019-12-18 07:00] LABS: Calcium 7.6 mg/dL (8.6-10.3); EGFR African American 163.5 (>60); EGFR Non-African American 135.2 (>60); Potassium 3.8 mmol/L (3.5-5.0)
[2019-12-18] MEDS: Heparin 5000 UNITS/ML 1 mL VIAL SUBCUT SCH ×2 (08:55→21:30)
[2019-12-18] MEDS: Potassium Chlor 10 meq TAB PO SCH (08:55)
[2019-12-18] MEDS: Carbidopa/Levodop CR 50/200 TAB.CR PO SCH ×2 (08:55→22:29)
[2019-12-18] MEDS: Carbidopa/Levodop 25/100 MG TAB PO SCH ×5 (08:59→18:18)
[2019-12-18] MEDS: cefTRIAXone 1 gm/50 mL NS BAG 1 GM/50 ML BAG IVPB SCH (22:29)
[2019-12-18] MEDS ORDERED: NS 0.9% 500 ml BAG 500 ML IV ONE (23:51)
[2019-12-19] MEDS: Zinc Oxide 16% PASTE (Butt Paste) 30 gm TUBE TOPICAL SCH ×3 (00:04→22:22)
[2019-12-19] MEDS: Vancomycin 1000 MG in NS 0.9% 250 ML IVPB SCH ×2 (02:51→15:56)
[2019-12-19 07:20] LABS: ABS Eosinophils 0.4 10^3/ul (0-0.6); ABS Lymphocytes 1.1 10^3/ul (1.0-4.8); ABS Monocytes 0.4 10^3/ul (0-0.8); Eosinophil % 5.9 %; Hematocrit 29 % (42-52); Hemoglobin 9.8 g/dL (14.0-18.0); Lymphocyte % 15.3 %; Mean Corpuscular HGB Conc 34 g/dL (31-36); Mean Corpuscular Hemoglobin 31 pg (27-31); Mean Corpuscular Volume 91 fL (80-94); Mean Platelet Volume 7.2 fL (7.4-10.4); Platelet Count 217 10^3/uL (150-450); Red Blood Count 3.18 10^6 /uL (4.18-5.48); Red Cell Distribution Width 15 % (10-15); White Blood Count 6.9 10^3/uL (3.5-10.8)
[2019-12-19 07:45] LABS: Calcium 7.3 mg/dL (8.6-10.3); EGFR African American 160.3 (>60); EGFR Non-African American 132.5 (>60); Potassium 3.9 mmol/L (3.5-5.0)
[2019-12-19] MEDS: Carbidopa/Levodop 25/100 MG TAB PO SCH ×5 (08:10→21:30)
[2019-12-19] MEDS: Potassium Chlor 10 meq TAB PO SCH (09:54)
[2019-12-19] MEDS: Carbidopa/Levodop CR 50/200 TAB.CR PO SCH ×2 (09:55→21:30)
[2019-12-19] MEDS: Heparin 5000 UNITS/ML 1 mL VIAL SUBCUT SCH ×2 (09:56→22:18)
[2019-12-19] MEDS ORDERED: Vancomycin Trough Check NOTE FOLLOW UP ONE (13:30)
[2019-12-19] MEDS ORDERED: LORazepam 2 mg VIAL 1 ml IV PUSH ONE (17:58)
[2019-12-19] MEDS ORDERED: Lorazepam PYXIS KEY PRN (17:58)
[2019-12-19] MEDS: cefTRIAXone 1 gm/50 mL NS BAG 1 GM/50 ML BAG IVPB SCH (22:06)
[2019-12-20] MEDS: Vancomycin 1000 MG in NS 0.9% 250 ML IVPB SCH ×2 (03:22→14:35)
[2019-12-20 06:42] LABS: BUN/Creatinine Ratio 27.6 (8-20); C Reactive Protein 161.3 mg/L (<8.01); Calcium 7.7 mg/dL (8.6-10.3); EGFR African American 163.5 (>60); EGFR Non-African American 135.2 (>60)
[2019-12-20] MEDS: Carbidopa/Levodop 25/100 MG TAB PO SCH ×5 (06:51→18:36)
[2019-12-20] MEDS: Zinc Oxide 16% PASTE (Butt Paste) 30 gm TUBE TOPICAL SCH (08:31)
[2019-12-20] MEDS: Carbidopa/Levodop CR 50/200 TAB.CR PO SCH ×2 (08:31→22:03)
[2019-12-20] MEDS: Heparin 5000 UNITS/ML 1 mL VIAL SUBCUT SCH ×2 (08:32→22:11)
[2019-12-20] MEDS: Potassium Chlor 10 meq TAB PO SCH (08:32)
[2019-12-20] MEDS: Nystatin TOP POWDER 15 GM BTL TOPICAL SCH (22:03)
[2019-12-20] MEDS: cefTRIAXone 1 gm/50 mL NS BAG 1 GM/50 ML BAG IVPB SCH (22:06)
[2019-12-21] MEDS: Vancomycin 1000 MG in NS 0.9% 250 ML IVPB SCH ×2 (01:44→15:28)
[2019-12-21] MEDS: Zinc Oxide 16% PASTE (Butt Paste) 30 gm TUBE TOPICAL SCH ×4 (02:30→21:47)
[2019-12-21] MEDS: Carbidopa/Levodop 25/100 MG TAB PO SCH ×5 (07:02→18:44)
[2019-12-21] MEDS: Carbidopa/Levodop CR 50/200 TAB.CR PO SCH ×2 (08:37→21:40)
[2019-12-21] MEDS: Potassium Chlor 10 meq TAB PO SCH (08:38)
[2019-12-21] MEDS: Heparin 5000 UNITS/ML 1 mL VIAL SUBCUT SCH ×2 (08:38→21:43)
[2019-12-21] MEDS: Nystatin TOP POWDER 15 GM BTL TOPICAL SCH ×2 (08:47→21:47)
[2019-12-21] MEDS ORDERED: Albuterol/Ipratropium NEB.SOL (2.5/0.5 MG) 3 ML NEB.SOLN INH ONE (12:27)
[2019-12-21] MEDS ORDERED: Furosemide 20 mg/2 ml IV VIAL IV SLOW PU ONE ×2 (12:59→16:13)
[2019-12-21] MEDS ORDERED: Vancomycin Trough Check NOTE FOLLOW UP ONE (13:30)
[2019-12-21 14:21] LABS: EGFR African American 157.3 (>60)
[2019-12-21 14:32] LABS: Vancomycin Trough 11.3 mcg/mL
[2019-12-21] MEDS ORDERED: Prochlorperazine 5 mg/ml 2 ml VIAL (10 mg) IV PRN (15:53)
[2019-12-21] MEDS ORDERED: Furosemide 20 mg/2 ml IV VIAL ONE (16:17)
[2019-12-21 20:41] LABS: ABS Basophils 0.1 10^3/ul (0-0.2); ABS Eosinophils 0.6 10^3/ul (0-0.6); ABS Lymphocytes 0.8 10^3/ul (1.0-4.8); ABS Monocytes 1.1 10^3/ul (0-0.8); ABS Neutrophils 8.4 10^3/ul (1.5-7.7); Eosinophil % 5.4 %; Hematocrit 31 % (42-52); Hemoglobin 10.4 g/dL (14.0-18.0); Mean Corpuscular HGB Conc 33 g/dL (31-36); Mean Corpuscular Hemoglobin 30 pg (27-31); Mean Corpuscular Volume 91 fL (80-94); Mean Platelet Volume 6.6 fL (7.4-10.4); Platelet Count 389 10^3/uL (150-450); Red Blood Count 3.45 10^6 /uL (4.18-5.48); Red Cell Distribution Width 15 % (10-15)
[2019-12-21 20:58] LABS: Albumin 2.5 g/dL (3.2-5.2); Albumin/Globulin Ratio 0.8 (1-3); BUN/Creatinine Ratio 19.2 (8-20); Calcium 7.9 mg/dL (8.6-10.3); EGFR African American 125.4 (>60); EGFR Non-African American 103.6 (>60); Globulin 3.2 g/dL (2-4); Potassium 3.9 mmol/L (3.5-5.0); Total Bilirubin 0.4 mg/dL (0.2-1.0); Total Protein 5.7 g/dL (6.4-8.9)
[2019-12-21 21:19] LABS: Urine Appearance Clear; Urine Bilirubin Negative (Negative); Urine Blood 1+ (Negative); Urine Color Straw; Urine Glucose Negative (Negative); Urine Ketones Negative (Negative); Urine Nitrite Negative (Negative); Urine Protein Negative (Negative); Urine Specific Gravity 1.005 (1.010-1.030); Urine Urobilinogen Negative (Negative)
[2019-12-21 21:28] LABS: Urine Bacteria Absent (Absent); Urine Red Blood Cell Trace(0-2/hpf) (Absent); Urine White Blood Cell Trace(0-5/hpf) (Absent)
[2019-12-21] MEDS: cefTRIAXone 1 gm/50 mL NS BAG 1 GM/50 ML BAG IVPB SCH (21:46)
[2019-12-22] MEDS: Vancomycin 1000 MG in NS 0.9% 250 ML IVPB SCH ×2 (02:04→13:23)
[2019-12-22] MEDS: Carbidopa/Levodop 25/100 MG TAB PO SCH ×5 (06:32→19:44)
[2019-12-22] MEDS ORDERED: Furosemide 20 mg/2 ml IV VIAL IV SLOW PU ONE ×2 (07:17→14:34)
[2019-12-22] MEDS: Heparin 5000 UNITS/ML 1 mL VIAL SUBCUT SCH ×2 (09:01→21:03)
[2019-12-22] MEDS: Nystatin TOP POWDER 15 GM BTL TOPICAL SCH ×2 (09:03→21:07)
[2019-12-22] MEDS: Carbidopa/Levodop CR 50/200 TAB.CR PO SCH ×2 (09:07→21:05)
[2019-12-22] MEDS: Potassium Chlor 10 meq TAB PO SCH (09:07)
[2019-12-22] MEDS: Zinc Oxide 16% PASTE (Butt Paste) 30 gm TUBE TOPICAL SCH ×2 (09:12→21:08)
[2019-12-22] MEDS: cefTRIAXone 1 gm/50 mL NS BAG 1 GM/50 ML BAG IVPB SCH (21:10)
[2019-12-23] MEDS: Vancomycin 1000 MG in NS 0.9% 250 ML IVPB SCH ×2 (02:10→14:48)
[2019-12-23] MEDS: Carbidopa/Levodop 25/100 MG TAB PO SCH ×5 (05:46→19:45)
[2019-12-23 06:42] LABS: ABS Basophils 0.1 10^3/ul (0-0.2); ABS Eosinophils 0.7 10^3/ul (0-0.6); ABS Lymphocytes 1.1 10^3/ul (1.0-4.8); ABS Monocytes 0.7 10^3/ul (0-0.8); ABS Neutrophils 8.1 10^3/ul (1.5-7.7); Eosinophil % 6.4 %; Hematocrit 31 % (42-52); Hemoglobin 10.4 g/dL (14.0-18.0); Lymphocyte % 10.7 %; Mean Corpuscular HGB Conc 33 g/dL (31-36); Mean Corpuscular Hemoglobin 31 pg (27-31); Mean Corpuscular Volume 92 fL (80-94); Nucleated Red Blood Cells % 0.1; Platelet Count 372 10^3/uL (150-450); Red Cell Distribution Width 15 % (10-15); White Blood Count 10.7 10^3/uL (3.5-10.8)
[2019-12-23] MEDS: Carbidopa/Levodop CR 50/200 TAB.CR PO SCH ×2 (09:18→23:27)
[2019-12-23] MEDS: Potassium Chlor 10 meq TAB PO SCH (09:18)
[2019-12-23] MEDS: Zinc Oxide 16% PASTE (Butt Paste) 30 gm TUBE TOPICAL SCH ×2 (09:19→19:48)
[2019-12-23] MEDS: Nystatin TOP POWDER 15 GM BTL TOPICAL SCH ×2 (09:19→23:26)
[2019-12-23] MEDS: Heparin 5000 UNITS/ML 1 mL VIAL SUBCUT SCH (09:22)
[2019-12-23] MEDS ORDERED: Vancomycin Trough Check NOTE FOLLOW UP ONE (13:30)
[2019-12-23 14:09] LABS: Vancomycin Trough 16.1 mcg/mL
[2019-12-23 14:10] LABS: EGFR African American 129.5 (>60)
[2019-12-23] MEDS ORDERED: Vancomycin 750 MG in NS 0.9% 250 ML IVPB SCH (15:00)
[2019-12-23] MEDS: Enoxaparin 40 MG/0.4 ML SYR SUBCUT SCH (16:37)
[2019-12-23] MEDS ORDERED: Furosemide 20 mg/2 ml IV VIAL IV SLOW PU ONE (17:50)
[2019-12-23] MEDS: cefTRIAXone 1 gm/50 mL NS BAG 1 GM/50 ML BAG IVPB SCH (23:27)
[2019-12-24] MEDS: Carbidopa/Levodop 25/100 MG TAB PO SCH ×5 (06:28→19:49)
[2019-12-24 06:31] LABS: ABS Basophils 0.1 10^3/ul (0-0.2); ABS Eosinophils 0.6 10^3/ul (0-0.6); ABS Monocytes 0.8 10^3/ul (0-0.8); ABS Neutrophils 10.5 10^3/ul (1.5-7.7); Eosinophil % 4.8 %; Hematocrit 30 % (42-52); Hemoglobin 9.9 g/dL (14.0-18.0); Lymphocyte % 7.6 %; Mean Corpuscular HGB Conc 33 g/dL (31-36); Mean Corpuscular Hemoglobin 30 pg (27-31); Mean Corpuscular Volume 91 fL (80-94); Mean Platelet Volume 6.9 fL (7.4-10.4); Platelet Count 372 10^3/uL (150-450); Red Blood Count 3.26 10^6 /uL (4.18-5.48); Red Cell Distribution Width 15 % (10-15)
[2019-12-24 06:55] LABS: BUN/Creatinine Ratio 31.4 (8-20); Calcium 7.7 mg/dL (8.6-10.3); EGFR African American 131.6 (>60); EGFR Non-African American 108.8 (>60); Potassium 3.5 mmol/L (3.5-5.0)
[2019-12-24 08:36] LABS: C Reactive Protein 174.44 mg/L (<8.01)
[2019-12-24] MEDS: Potassium Chlor 10 meq TAB PO SCH (10:31)
[2019-12-24] MEDS: Zinc Oxide 16% PASTE (Butt Paste) 30 gm TUBE TOPICAL SCH ×2 (10:32→21:04)
[2019-12-24] MEDS: Nystatin TOP POWDER 15 GM BTL TOPICAL SCH ×2 (10:32→21:04)
[2019-12-24] MEDS: Carbidopa/Levodop CR 50/200 TAB.CR PO SCH ×2 (11:20→21:04)
[2019-12-24 13:22] LABS: ABS Basophils 0.1 10^3/ul (0-0.2); ABS Eosinophils 0.3 10^3/ul (0-0.6); ABS Monocytes 0.9 10^3/ul (0-0.8); Eosinophil % 1.5 %; Hematocrit 31 % (42-52); Hemoglobin 10.2 g/dL (14.0-18.0); Lymphocyte % 5.6 %; Mean Corpuscular HGB Conc 33 g/dL (31-36); Mean Corpuscular Hemoglobin 30 pg (27-31); Mean Corpuscular Volume 91 fL (80-94); Mean Platelet Volume 6.7 fL (7.4-10.4); Platelet Count 415 10^3/uL (150-450); Red Blood Count 3.38 10^6 /uL (4.18-5.48); Red Cell Distribution Width 15 % (10-15); White Blood Count 17.2 10^3/uL (3.5-10.8)
[2019-12-24 13:40] LABS: Albumin 2.3 g/dL (3.2-5.2); Albumin/Globulin Ratio 0.7 (1-3); BUN/Creatinine Ratio 33.3 (8-20); Calcium 7.6 mg/dL (8.6-10.3); EGFR African American 133.8 (>60); EGFR Non-African American 110.6 (>60); Globulin 3.2 g/dL (2-4); Potassium 3.9 mmol/L (3.5-5.0); Total Bilirubin 0.3 mg/dL (0.2-1.0); Total Protein 5.5 g/dL (6.4-8.9)
[2019-12-24] MEDS ORDERED: Vancomycin per Pharmacy 1 EA NOTE FOLLOW UP PRN (13:54)
[2019-12-24] MEDS ORDERED: Vancomycin 1,000 MG in NS 0.9% 250 ml 250 ML IVPB ONE (14:00)
[2019-12-24] MEDS: Cefepime 1 GM in Dextrose 1 GM/50 ML BAG IV SCH (15:18)
[2019-12-24] MEDS: Enoxaparin 40 MG/0.4 ML SYR SUBCUT SCH (15:39)
[2019-12-25] MEDS: Cefepime 1 GM in Dextrose 1 GM/50 ML BAG IV SCH ×2 (01:17→13:42)
[2019-12-25] MEDS: Vancomycin 750 MG in NS 0.9% 250 ML IVPB SCH ×2 (01:23→16:18)
[2019-12-25 06:04] LABS: ABS Basophils 0.1 10^3/ul (0-0.2); ABS Eosinophils 0.3 10^3/ul (0-0.6); ABS Lymphocytes 1.1 10^3/ul (1.0-4.8); ABS Monocytes 0.8 10^3/ul (0-0.8); ABS Neutrophils 12.7 10^3/ul (1.5-7.7); Eosinophil % 2.2 %; Hematocrit 31 % (42-52); Hemoglobin 10.4 g/dL (14.0-18.0); Lymphocyte % 7.4 %; Mean Corpuscular HGB Conc 34 g/dL (31-36); Mean Corpuscular Hemoglobin 31 pg (27-31); Mean Corpuscular Volume 91 fL (80-94); Mean Platelet Volume 6.8 fL (7.4-10.4); Platelet Count 383 10^3/uL (150-450); Red Blood Count 3.39 10^6 /uL (4.18-5.48); Red Cell Distribution Width 15 % (10-15); White Blood Count 15.1 10^3/uL (3.5-10.8)
[2019-12-25 06:23] LABS: BUN/Creatinine Ratio 33.3 (8-20); Calcium 7.7 mg/dL (8.6-10.3); EGFR African American 140.9 (>60); EGFR Non-African American 116.4 (>60); Potassium 3.6 mmol/L (3.5-5.0)
[2019-12-25] MEDS: Carbidopa/Levodop 25/100 MG TAB PO SCH ×5 (06:32→20:06)
[2019-12-25] MEDS: Nystatin TOP POWDER 15 GM BTL TOPICAL SCH ×2 (09:06→22:00)
[2019-12-25] MEDS: Zinc Oxide 16% PASTE (Butt Paste) 30 gm TUBE TOPICAL SCH ×2 (09:06→22:00)
[2019-12-25] MEDS: Carbidopa/Levodop CR 50/200 TAB.CR PO SCH ×2 (09:07→22:00)
[2019-12-25] MEDS: Potassium Chlor 10 meq TAB PO SCH (09:07)
[2019-12-25] MEDS: Enoxaparin 40 MG/0.4 ML SYR SUBCUT SCH (16:21)
[2019-12-26] MEDS: Cefepime 1 GM in Dextrose 1 GM/50 ML BAG IV SCH ×2 (02:30→14:47)
[2019-12-26] MEDS: Vancomycin 750 MG in NS 0.9% 250 ML IVPB SCH ×2 (03:07→15:26)
[2019-12-26 05:27] LABS: ABS Eosinophils 0.2 10^3/ul (0-0.6); ABS Monocytes 0.7 10^3/ul (0-0.8); ABS Neutrophils 14.8 10^3/ul (1.5-7.7); Eosinophil % 1.4 %; Hematocrit 29 % (42-52); Hemoglobin 9.7 g/dL (14.0-18.0); Lymphocyte % 5.8 %; Mean Corpuscular HGB Conc 33 g/dL (31-36); Mean Corpuscular Hemoglobin 30 pg (27-31); Mean Corpuscular Volume 91 fL (80-94); Mean Platelet Volume 7.1 fL (7.4-10.4); Platelet Count 381 10^3/uL (150-450); Red Blood Count 3.22 10^6 /uL (4.18-5.48); Red Cell Distribution Width 15 % (10-15); White Blood Count 16.8 10^3/uL (3.5-10.8)
[2019-12-26 05:50] LABS: BUN/Creatinine Ratio 33.8 (8-20); Calcium 7.6 mg/dL (8.6-10.3); EGFR African American 143.4 (>60); EGFR Non-African American 118.5 (>60); Potassium 3.7 mmol/L (3.5-5.0)
[2019-12-26] MEDS: Carbidopa/Levodop 25/100 MG TAB PO SCH ×5 (06:36→20:50)
[2019-12-26] MEDS: Carbidopa/Levodop CR 50/200 TAB.CR PO SCH ×2 (07:17→20:50)
[2019-12-26] MEDS: Zinc Oxide 16% PASTE (Butt Paste) 30 gm TUBE TOPICAL SCH ×2 (09:31→20:50)
[2019-12-26] MEDS: Potassium Chlor 10 meq TAB PO SCH (09:31)
[2019-12-26] MEDS: Nystatin TOP POWDER 15 GM BTL TOPICAL SCH ×2 (09:31→20:50)
[2019-12-26] MEDS ORDERED: Vancomycin Trough Check NOTE FOLLOW UP ONE (13:30)
[2019-12-26 14:37] LABS: EGFR African American 127.4 (>60); EGFR Non-African American 105.3 (>60)
[2019-12-26 15:00] LABS: Vancomycin Trough 11.8 mcg/mL
[2019-12-26] MEDS: Enoxaparin 40 MG/0.4 ML SYR SUBCUT SCH (15:26)
[2019-12-27] MEDS ORDERED: Vancomycin 1000 MG in NS 0.9% 250 ML IVPB SCH
[2019-12-27] MEDS: Cefepime 1 GM in Dextrose 1 GM/50 ML BAG IV SCH ×2 (02:12→15:18)
[2019-12-27 07:18] LABS: ABS Eosinophils 0.2 10^3/ul (0-0.6); ABS Monocytes 0.6 10^3/ul (0-0.8); ABS Neutrophils 12.1 10^3/ul (1.5-7.7); Eosinophil % 1.2 %; Hematocrit 29 % (42-52); Hemoglobin 9.7 g/dL (14.0-18.0); Mean Corpuscular HGB Conc 33 g/dL (31-36); Mean Corpuscular Hemoglobin 30 pg (27-31); Mean Corpuscular Volume 91 fL (80-94); Mean Platelet Volume 7.1 fL (7.4-10.4); Platelet Count 437 10^3/uL (150-450); Red Blood Count 3.21 10^6 /uL (4.18-5.48); Red Cell Distribution Width 15 % (10-15)
[2019-12-27 07:32] LABS: BUN/Creatinine Ratio 33.3 (8-20); C Reactive Protein 186.12 mg/L (<8.01); Calcium 7.6 mg/dL (8.6-10.3); EGFR African American 140.9 (>60); EGFR Non-African American 116.4 (>60); Potassium 3.9 mmol/L (3.5-5.0)
[2019-12-27] MEDS: Nystatin TOP POWDER 15 GM BTL TOPICAL SCH ×2 (08:02→22:47)
[2019-12-27] MEDS: Carbidopa/Levodop 25/100 MG TAB PO SCH ×6 (08:02→22:46)
[2019-12-27] MEDS: Zinc Oxide 16% PASTE (Butt Paste) 30 gm TUBE TOPICAL SCH ×2 (08:03→22:47)
[2019-12-27] MEDS: Potassium Chlor 10 meq TAB PO SCH (08:03)
[2019-12-27] MEDS: Carbidopa/Levodop CR 50/200 TAB.CR PO SCH (09:39)
[2019-12-27] MEDS: metroNIDAZOLE IV 500 MG/100ML 500 MG/100 ML BAG IVPB SCH ×2 (09:39→16:44)
[2019-12-27] MEDS ORDERED: Rocuronium 50 mg VIAL 10 mg/ml 5 ml VIAL (50 mg) ONE (12:45)
[2019-12-27] MEDS ORDERED: Succinylcholine 200 mg VIAL 20 mg/ml 10 ml VIAL (200 mg) ONE (12:45)
[2019-12-27] MEDS ORDERED: Vancomycin per Pharmacy 1 EA NOTE FOLLOW UP SCH (13:00)
[2019-12-27] MEDS ORDERED: Propofol 10 mg/ml 100 ML BTL 100 ML ONE (13:00)
[2019-12-27] MEDS ORDERED: Etomidate 40 mg/20 ml (2 MG/ML) 20 ml VIAL (40 mg) ONE (13:01)
[2019-12-27] MEDS ORDERED: fentaNYL 250 mcg/5 ml 50 MCG/ML 5 ml VIAL (250 MCG) ONE (13:20)
[2019-12-27] MEDS: Propofol 10 mg/ml 100 ML BTL 100 ML IV SCH (14:24)
[2019-12-27] MEDS: fentaNYL INFUSION 50 MCG/ML 2,500 MCG/50 ML BAG IV SCH (14:55)
[2019-12-27] MEDS ORDERED: Norepinephrine 16MCG/ML IVPRE 4,000 MCG/250 ML BAG IV ONE (15:03)
[2019-12-27] MEDS: Norepinephrine 16MCG/ML IVPRE 4,000 MCG/250 ML BAG IV SCH (15:03)
[2019-12-27] MEDS: Vancomycin 1000 MG in NS 0.9% 250 ML IVPB SCH (15:09)
[2019-12-27] MEDS: Enoxaparin 40 MG/0.4 ML SYR SUBCUT SCH (16:51)
[2019-12-27] MEDS ORDERED: Lactated Ringers 1000 ml BAG 1,000 ML IV ONE (16:54)
[2019-12-27] MEDS: Propofol* 20 ML VIAL - FOR IV LINE PRIMING ONLY SCH (16:57)
[2019-12-27] MEDS: Chlorhexidine MOUTHWASH 0.12% 15 ML UDC SWISH SPIT SCH ×3 (17:00→23:22)
[2019-12-28] MEDS ORDERED: Lactated Ringers 500 ml BAG 500 ML IV ONE (00:05)
[2019-12-28] MEDS: Propofol* 20 ML VIAL - FOR IV LINE PRIMING ONLY SCH ×2 (00:59→15:18)
[2019-12-28] MEDS ORDERED: Lactated Ringers 1000 ml BAG 1,000 ML IV SCH (01:00)
[2019-12-28] MEDS: metroNIDAZOLE IV 500 MG/100ML 500 MG/100 ML BAG IVPB SCH ×3 (01:05→16:12)
[2019-12-28] MEDS: Vancomycin 1000 MG in NS 0.9% 250 ML IVPB SCH ×2 (01:11→12:44)
[2019-12-28] MEDS: Cefepime 1 GM in Dextrose 1 GM/50 ML BAG IV SCH ×2 (02:32→14:28)
[2019-12-28] MEDS: Propofol 10 mg/ml 100 ML BTL 100 ML IV SCH (03:26)
[2019-12-28] MEDS: Chlorhexidine MOUTHWASH 0.12% 15 ML UDC SWISH SPIT SCH ×6 (04:11→19:45)
[2019-12-28] MEDS: Carbidopa/Levodop 25/100 MG TAB PO SCH ×7 (04:11→22:54)
[2019-12-28 05:47] LABS: ABS Basophils 0.1 10^3/ul (0-0.2); ABS Eosinophils 0.4 10^3/ul (0-0.6); ABS Lymphocytes 1.1 10^3/ul (1.0-4.8); ABS Monocytes 0.7 10^3/ul (0-0.8); ABS Neutrophils 12.3 10^3/ul (1.5-7.7); Eosinophil % 2.9 %; Hematocrit 27 % (42-52); Hemoglobin 8.8 g/dL (14.0-18.0); Lymphocyte % 7.5 %; Mean Corpuscular HGB Conc 32 g/dL (31-36); Mean Corpuscular Hemoglobin 30 pg (27-31); Mean Corpuscular Volume 93 fL (80-94); Mean Platelet Volume 7.1 fL (7.4-10.4); Platelet Count 389 10^3/uL (150-450); Red Blood Count 2.94 10^6 /uL (4.18-5.48); Red Cell Distribution Width 15 % (10-15); White Blood Count 14.6 10^3/uL (3.5-10.8)
[2019-12-28 05:51] LABS: ALT < 3 U/L (7-52); AST 11 U/L (13-39); Albumin/Globulin Ratio 0.7 (1-3); Alkaline Phosphatase 91 U/L (34-104); BUN/Creatinine Ratio 30.9 (8-20); Blood Urea Nitrogen 21 mg/dL (6-24); CO2 Carbon Dioxide 27 mmol/L (22-32); Calcium 7.4 mg/dL (8.6-10.3); EGFR African American 136.1 (>60); EGFR Non-African American 112.5 (>60); Globulin 2.8 g/dL (2-4); Glucose 75 mg/dL (70-100); Phosphorus 3.5 mg/dL (2.5-5.0); Potassium 3.8 mmol/L (3.5-5.0); Sodium 145 mmol/L (135-145); Total Protein 4.8 g/dL (6.4-8.9)
[2019-12-28 05:53] LABS: Anion Gap 4 mmol/L (2-11); Chloride 114 mmol/L (101-111)
[2019-12-28] MEDS: Norepinephrine 16MCG/ML IVPRE 4,000 MCG/250 ML BAG IV SCH (05:59)
[2019-12-28] MEDS: Potassium Chlor 10 meq TAB PO SCH (09:44)
[2019-12-28] MEDS: Nystatin TOP POWDER 15 GM BTL TOPICAL SCH ×2 (09:44→19:59)
[2019-12-28] MEDS: Zinc Oxide 16% PASTE (Butt Paste) 30 gm TUBE TOPICAL SCH ×2 (09:45→19:59)
[2019-12-28] MEDS ORDERED: Potassium Chloride LIQUID 20 MEQ/15 ML LIQUID PO ONE (10:07)
[2019-12-28] MEDS ORDERED: Hydrocortisone INJ 250 MG VIAL IV ONE (11:38)
[2019-12-28] MEDS: Albumin Human 25% 25 GM/100 ML BTL IV SCH ×2 (12:27→13:01)
[2019-12-28] MEDS: fentaNYL INFUSION 50 MCG/ML 2,500 MCG/50 ML BAG IV SCH (12:58)
[2019-12-28] MEDS: Vancomycin SOL ORALSYR 50 MG/ML ML PO SCH ×2 (13:09→17:21)
[2019-12-28] MEDS: Enoxaparin 40 MG/0.4 ML SYR SUBCUT SCH (16:13)
[2019-12-28] MEDS ORDERED: Digoxin IV 0.5 MG/2 ML AMP (0.25 MG/ML) IV SLOW PU ONE ×2 (16:50→23:00)
[2019-12-28] MEDS: Meropenem 2 GM in NS 0.9% 100 ML IVPB SCH (17:21)
[2019-12-28] MEDS: Hydrocortisone INJ 100 MG/2ML 2 ML VIAL IV SCH (19:46)
[2019-12-28] MEDS: Famotidine IV 10 MG/ML 2 ml VIAL (20 mg) IV SLOW PU SCH (19:46)
[2019-12-28] MEDS ORDERED: Hydrocortisone INJ 100 MG/2ML 2 ML VIAL IV SCH (20:00)
[2019-12-29] MEDS: Chlorhexidine MOUTHWASH 0.12% 15 ML UDC SWISH SPIT SCH ×7 (00:26→23:14)
[2019-12-29] MEDS: Vancomycin SOL ORALSYR 50 MG/ML ML PO SCH ×5 (00:31→23:14)
[2019-12-29] MEDS: Propofol* 20 ML VIAL - FOR IV LINE PRIMING ONLY SCH ×2 (04:07→13:47)
[2019-12-29] MEDS: Hydrocortisone INJ 100 MG/2ML 2 ML VIAL IV SCH ×2 (04:27→12:19)
[2019-12-29] MEDS: Carbidopa/Levodop 25/100 MG TAB PO SCH ×7 (04:30→23:12)
[2019-12-29 05:04] LABS: ABS Lymphocytes 0.6 10^3/ul (1.0-4.8); ABS Monocytes 0.2 10^3/ul (0-0.8); ABS Neutrophils 10.7 10^3/ul (1.5-7.7); Eosinophil % 0.1 %; Hematocrit 28 % (42-52); Hemoglobin 9.2 g/dL (14.0-18.0); Lymphocyte % 5.3 %; Mean Corpuscular HGB Conc 32 g/dL (31-36); Mean Corpuscular Hemoglobin 30 pg (27-31); Mean Corpuscular Volume 92 fL (80-94); Platelet Count 410 10^3/uL (150-450); Red Blood Count 3.09 10^6 /uL (4.18-5.48); Red Cell Distribution Width 15 % (10-15); White Blood Count 11.6 10^3/uL (3.5-10.8)
[2019-12-29 05:20] LABS: ALT < 3 U/L (7-52); AST 11 U/L (13-39); Albumin 2.6 g/dL (3.2-5.2); Albumin/Globulin Ratio 0.9 (1-3); Alkaline Phosphatase 97 U/L (34-104); Anion Gap 8 mmol/L (2-11); BUN/Creatinine Ratio 40.3 (8-20); Blood Urea Nitrogen 29 mg/dL (6-24); CO2 Carbon Dioxide 24 mmol/L (22-32); Calcium 7.8 mg/dL (8.6-10.3); Chloride 109 mmol/L (101-111); EGFR African American 127.4 (>60); EGFR Non-African American 105.3 (>60); Globulin 2.8 g/dL (2-4); Glucose 144 mg/dL (70-100); Magnesium 2.1 mg/dL (1.9-2.7); Phosphorus 4.2 mg/dL (2.5-5.0); Potassium 4.2 mmol/L (3.5-5.0); Sodium 141 mmol/L (135-145); Total Protein 5.4 g/dL (6.4-8.9)
[2019-12-29 05:44] LABS: Urine Appearance Cloudy; Urine Bilirubin Negative (Negative); Urine Blood Negative (Negative); Urine Color Amber; Urine Glucose Negative (Negative); Urine Ketones 1+ (Negative); Urine Nitrite Negative (Negative); Urine Protein 1+(30 mg/dL) (Negative); Urine Specific Gravity 1.031 (1.010-1.030); Urine Urobilinogen Negative (Negative)
[2019-12-29 05:48] LABS: Urine Bacteria Absent (Absent); Urine Red Blood Cell 3+(>10/hpf) (Absent); Urine White Blood Cell 1+(6-10/hpf) (Absent)
[2019-12-29] MEDS: Meropenem 2 GM in NS 0.9% 100 ML IVPB SCH ×2 (05:48→16:59)
[2019-12-29] MEDS: Zinc Oxide 16% PASTE (Butt Paste) 30 gm TUBE TOPICAL SCH ×2 (08:54→19:56)
[2019-12-29] MEDS: Famotidine IV 10 MG/ML 2 ml VIAL (20 mg) IV SLOW PU SCH ×2 (08:54→19:55)
[2019-12-29] MEDS: Nystatin TOP POWDER 15 GM BTL TOPICAL SCH ×2 (08:55→21:11)
[2019-12-29] MEDS ORDERED: Vancomycin Trough Check NOTE FOLLOW UP ONE ×2 (11:30→12:30)
[2019-12-29] MEDS: Enoxaparin 40 MG/0.4 ML SYR SUBCUT SCH (16:59)
[2019-12-30] MEDS: Propofol* 20 ML VIAL - FOR IV LINE PRIMING ONLY SCH (02:56)
[2019-12-30] MEDS: Carbidopa/Levodop 25/100 MG TAB PO SCH ×7 (04:05→22:50)
[2019-12-30] MEDS: Meropenem 2 GM in NS 0.9% 100 ML IVPB SCH ×2 (04:41→16:58)
[2019-12-30 04:44] LABS: ABS Lymphocytes 0.9 10^3/ul (1.0-4.8); ABS Monocytes 0.7 10^3/ul (0-0.8); ABS Neutrophils 13.5 10^3/ul (1.5-7.7); Hematocrit 31 % (42-52); Mean Corpuscular HGB Conc 32 g/dL (31-36); Mean Corpuscular Hemoglobin 30 pg (27-31); Mean Corpuscular Volume 93 fL (80-94); Mean Platelet Volume 7.4 fL (7.4-10.4); Platelet Count 465 10^3/uL (150-450); Red Blood Count 3.38 10^6 /uL (4.18-5.48); Red Cell Distribution Width 15 % (10-15); White Blood Count 15.1 10^3/uL (3.5-10.8)
[2019-12-30 04:57] LABS: Albumin 2.5 g/dL (3.2-5.2); Anion Gap 5 mmol/L (2-11); CO2 Carbon Dioxide 26 mmol/L (22-32); Chloride 111 mmol/L (101-111); Magnesium 2.4 mg/dL (1.9-2.7); Potassium 4.6 mmol/L (3.5-5.0); Sodium 142 mmol/L (135-145)
[2019-12-30 05:03] LABS: ALT < 3 U/L (7-52); AST 9 U/L (13-39); Albumin/Globulin Ratio 0.9 (1-3); Alkaline Phosphatase 100 U/L (34-104); BUN/Creatinine Ratio 49.3 (8-20); Blood Urea Nitrogen 33 mg/dL (6-24); EGFR African American 138.5 (>60); EGFR Non-African American 114.4 (>60); Globulin 2.9 g/dL (2-4); Glucose 155 mg/dL (70-100); Phosphorus 2.4 mg/dL (2.5-5.0); Total Protein 5.4 g/dL (6.4-8.9)
[2019-12-30] MEDS: Vancomycin SOL ORALSYR 50 MG/ML ML PO SCH ×3 (05:41→19:38)
[2019-12-30] MEDS: Chlorhexidine MOUTHWASH 0.12% 15 ML UDC SWISH SPIT SCH ×3 (05:41→12:39)
[2019-12-30] MEDS: Nystatin TOP POWDER 15 GM BTL TOPICAL SCH ×2 (09:41→20:55)
[2019-12-30] MEDS: Zinc Oxide 16% PASTE (Butt Paste) 30 gm TUBE TOPICAL SCH ×2 (09:42→20:55)
[2019-12-30] MEDS: Famotidine IV 10 MG/ML 2 ml VIAL (20 mg) IV SLOW PU SCH ×2 (09:42→20:54)
[2019-12-30] MEDS: Enoxaparin 40 MG/0.4 ML SYR SUBCUT SCH (16:58)
[2019-12-31] MEDS: Vancomycin SOL ORALSYR 50 MG/ML ML PO SCH ×5 (01:01→23:50)
[2019-12-31] MEDS: Carbidopa/Levodop 25/100 MG TAB PO SCH ×7 (04:26→22:20)
[2019-12-31] MEDS: Meropenem 2 GM in NS 0.9% 100 ML IVPB SCH ×2 (05:26→16:45)
[2019-12-31 05:32] LABS: ALT < 3 U/L (7-52); AST 12 U/L (13-39); Albumin 2.4 g/dL (3.2-5.2); Albumin/Globulin Ratio 0.9 (1-3); Alkaline Phosphatase 105 U/L (34-104); Anion Gap 1 mmol/L (2-11); BUN/Creatinine Ratio 44.6 (8-20); Blood Urea Nitrogen 25 mg/dL (6-24); CO2 Carbon Dioxide 30 mmol/L (22-32); Calcium 7.9 mg/dL (8.6-10.3); Chloride 109 mmol/L (101-111); EGFR African American 170.3 (>60); EGFR Non-African American 140.7 (>60); Globulin 2.7 g/dL (2-4); Glucose 120 mg/dL (70-100); Magnesium 2.1 mg/dL (1.9-2.7); Phosphorus 1.5 mg/dL (2.5-5.0); Potassium 4.1 mmol/L (3.5-5.0); Sodium 140 mmol/L (135-145); Total Protein 5.1 g/dL (6.4-8.9)
[2019-12-31 06:36] LABS: ABS Eosinophils 0.2 10^3/ul (0-0.6); ABS Monocytes 0.7 10^3/ul (0-0.8); ABS Neutrophils 8.5 10^3/ul (1.5-7.7); Eosinophil % 2.1 %; Hematocrit 30 % (42-52); Lymphocyte % 9.3 %; Mean Corpuscular HGB Conc 33 g/dL (31-36); Mean Corpuscular Hemoglobin 30 pg (27-31); Mean Corpuscular Volume 91 fL (80-94); Mean Platelet Volume 7.2 fL (7.4-10.4); Platelet Count 451 10^3/uL (150-450); Red Blood Count 3.31 10^6 /uL (4.18-5.48); Red Cell Distribution Width 15 % (10-15); White Blood Count 10.5 10^3/uL (3.5-10.8)
[2019-12-31] MEDS: Chlorhexidine MOUTHWASH 0.12% 15 ML UDC SWISH SPIT SCH (08:14)
[2019-12-31] MEDS: Famotidine IV 10 MG/ML 2 ml VIAL (20 mg) IV SLOW PU SCH ×2 (09:01→20:36)
[2019-12-31] MEDS: Nystatin TOP POWDER 15 GM BTL TOPICAL SCH ×2 (09:02→20:36)
[2019-12-31] MEDS: Zinc Oxide 16% PASTE (Butt Paste) 30 gm TUBE TOPICAL SCH ×2 (09:02→20:37)
[2019-12-31] MEDS: Atropine 1% (ORAL/SL) 15 ML BTL SL PRN ×4 (10:45→20:40)
[2019-12-31] MEDS: Enoxaparin 40 MG/0.4 ML SYR SUBCUT SCH (16:24)
[2020-01-01] MEDS: Carbidopa/Levodop 25/100 MG TAB PO SCH ×5 (04:38→16:30)
[2020-01-01] MEDS: Meropenem 2 GM in NS 0.9% 100 ML IVPB SCH ×2 (04:38→16:30)
[2020-01-01 05:11] LABS: Hematocrit 36 % (42-52); Hemoglobin 11.1 g/dL (14.0-18.0); Mean Corpuscular HGB Conc 31 g/dL (31-36); Mean Corpuscular Hemoglobin 29 pg (27-31); Mean Corpuscular Volume 93 fL (80-94); Mean Platelet Volume 7.5 fL (7.4-10.4); Platelet Count 404 10^3/uL (150-450); Red Blood Count 3.83 10^6 /uL (4.18-5.48); Red Cell Distribution Width 16 % (10-15)
[2020-01-01 05:12] LABS: White Blood Count 12.3 10^3/uL (3.5-10.8)
[2020-01-01 05:21] LABS: Albumin 2.4 g/dL (3.2-5.2); CO2 Carbon Dioxide 30 mmol/L (22-32); Calcium 7.7 mg/dL (8.6-10.3); Chloride 105 mmol/L (101-111); Sodium 140 mmol/L (135-145)
[2020-01-01 05:27] LABS: ALT < 3 U/L (7-52); Albumin/Globulin Ratio 0.8 (1-3); Alkaline Phosphatase 114 U/L (34-104); BUN/Creatinine Ratio 34.5 (8-20); Blood Urea Nitrogen 19 mg/dL (6-24); EGFR African American 173.9 (>60); EGFR Non-African American 143.7 (>60); Globulin 3.1 g/dL (2-4); Glucose 100 mg/dL (70-100); Phosphorus 1.9 mg/dL (2.5-5.0); Total Protein 5.5 g/dL (6.4-8.9)
[2020-01-01 05:30] LABS: Anion Gap 5 mmol/L (2-11)
[2020-01-01 06:11] LABS: Magnesium 1.9 mg/dL (1.9-2.7); Potassium Redraw 4.1 mmol/L (3.5-5.0)
[2020-01-01] MEDS: Vancomycin SOL ORALSYR 50 MG/ML ML PO SCH ×2 (06:19→13:13)
[2020-01-01 06:35] LABS: ABS Basophils 0.1 10^3/ul (0-0.2); ABS Eosinophils 0.7 10^3/ul (0-0.6); ABS Lymphocytes 1.4 10^3/ul (1.0-4.8); ABS Monocytes 0.9 10^3/ul (0-0.8); ABS Neutrophils 9.3 10^3/ul (1.5-7.7); Eosinophil % 5.5 %; Lymphocyte % 11.4 %; Nucleated Red Blood Cells % 0.1
[2020-01-01] MEDS: Famotidine IV 10 MG/ML 2 ml VIAL (20 mg) IV SLOW PU SCH ×2 (09:40→22:27)
[2020-01-01] MEDS: Zinc Oxide 16% PASTE (Butt Paste) 30 gm TUBE TOPICAL SCH (09:41)
[2020-01-01] MEDS: Nystatin TOP POWDER 15 GM BTL TOPICAL SCH ×2 (09:41→22:27)
[2020-01-01] MEDS: Enoxaparin 40 MG/0.4 ML SYR SUBCUT SCH (16:30)
[2020-01-02] MEDS: Vancomycin SOL ORALSYR 50 MG/ML ML PO SCH (06:35)
[2020-01-02] MEDS: Carbidopa/Levodop 25/100 MG TAB PO SCH (06:36)
[2020-01-02] MEDS: Famotidine IV 10 MG/ML 2 ml VIAL (20 mg) IV SLOW PU SCH (09:14)
[2020-01-02] MEDS: Nystatin TOP POWDER 15 GM BTL TOPICAL SCH (09:39)
[2020-01-02] MEDS ORDERED: Lorazepam PYXIS KEY PRN (12:37)
[2020-01-02] MEDS ORDERED: Morphine 10 MG/ML VIAL (1 ml) IV ONE (12:45)
[2020-01-02] MEDS ORDERED: LORazepam 2 mg VIAL 1 ml IV PUSH ONE (12:45)
[2020-01-02 12:53] VITALS: BP 130/77
[2020-01-02] MEDS ORDERED: Morphine PCA 5 MG/ML Titrate per Protocol PCA SCH (13:00)
[2020-01-02] MEDS ORDERED: LORazepam VIAL (for drip) 100 MG in D5W IV SCH (13:00)
[2020-01-03] MEDS ORDERED: Scopolamine PATCH Remove NOTE PATCH OFF SCH (23:00)
== END 2020-01-02 21:37 | disposition expired | DRG 602 ==
LOC: ED 11:16 → MED 13:41 → ICU 12-27 14:55
PROVIDERS: ADMIT Student in an Organized Health Care Education/Training Program; ATTEND Internal Medicine Critical Care Medicine